=== PATIENT | male | born 1950 | race Caucasian/White ===

== ENCOUNTER → 2016-07-05 | Outpatient (CLI) | payer OTHER ==
[~2016-07-05] MED LIST: ALBUAER INH; CHONCAP PO; DOXA4TAB2 PO; MULT-506 PO; PANT40TA PO; SIMV20TA2 PO; ZNTT/150 PO
[2016-07-05 09:27] LABS: BASO % 0.6 %; BASO ABS # 0.03 K/uL (0-0.2); COMPLETE YES; EOS % 8.2 %; HEMATOCRIT 41.3 % (42-52); LYMPH % 36.4 %; LYMPH ABS # 1.72 K/uL (1.2-3.4); MEAN CELL VOLUME 95.2 fL (80-100); MEAN CORPUSCULAR HEMOGLOBIN 31.8 pg (25-34); MEAN CORPUSCULAR HGB CONC 33.4 g/dl (32-36); MEAN PLATELET VOLUME 10.1 fL (7.4-10.4); MONO % 13.3 %; NEUT % 41.5 %; PLATELET COUNT 226 K/uL (130-400); RED BLOOD COUNT 4.34 M/uL (4.7-6.1); WHITE BLOOD COUNT 4.73 K/uL (4.8-10.8)
[2016-07-05 09:39] LABS: ALT/SGPT 35 U/L (12-78); AST/SGOT 22 U/L (15-37); BLOOD UREA NITROGEN 23 mg/dl (7-18); BUN/CREATININE RATIO 23.1 (10-20); CALCIUM 8.6 mg/dl (8.5-10.1); CARBON DIOXIDE 29 mmol/L (21-32); CHLORIDE 108 mmol/L (98-107); GLUCOSE 99 mg/dl (70-99); POTASSIUM 4.1 mmol/L (3.5-5.1); SODIUM 144 mmol/L (136-145)
[2016-07-05 09:51] LABS: ALB/GLOB RATIO 1.1 (0.9-2); ALKALINE PHOSPHATASE 67 U/L (45-117); CHOLESTEROL 211 mg/dl (0-200); CHOLESTEROL/HDL RATIO 3.1; HDL CHOLESTEROL 67 mg/dl; LDL CHOLESTEROL CALCULATED 121 mg/dl; TRIGLYCERIDES 116 mg/dl (0-150); VERY LOW DENSITY LIPOPROT CALC 23 mg/dl
[2016-07-05 09:54] LABS: ESTIMATED AVERAGE GLUCOSE 117 mg/dl; HA1C FLAG Normal (Normal)
[2016-07-05 12:43] LABS: LYME DISEASE AB IGG NEG (NEG); LYME DISEASE AB IGM NEG (NEG)
== END | disposition home or self-care (01) ==
LOC: C.LAB 07:22
PROVIDERS: ATTEND Family Medicine
DX: R73.09 Other abnormal glucose (principal); E55.9 Vitamin D deficiency, unspecified; D51.9 Vitamin B12 deficiency anemia, unspecified

== ENCOUNTER 2022-09-03 21:40 | Inpatient (IN) ==
[2022-09-03] MEDS ORDERED: cefTRIAXone SODIUM 2,000 MG/70 ML BAG IV STA (22:06)
[2022-09-03] MEDS ORDERED: dexAMETHasone**PF** 10 MG/ML VIAL IV ONE (22:06)
--- NOTE | 2022-09-03 22:12 | Emergency Department Note ---
History of Present Illness General Chief complaint: Headache Stated complaint: SEVERE HEADACHES,NECK PAIN, Time Seen by Provider: 09/03/22 21:45 History of Present Illness Maximum Pain Intensity: 7 This 72-year-old male presents the ER complaining of severe headache, neck stiffness fever chills cold symptoms for the past few days and saw the PCP yesterday and was placed on cefdinir. Patient states he had a tick bite 10 days ago. He developed cold symptoms a week later. Patient states his neck feels quite stiff and his headache is quite severe. He has a history of migraines but this feels much different. Patient denies chest pain, dyspnea, numbness, tingling, localized weakness, abdominal pain. No blood thinners. Has been taking Motrin and Percocet for his symptoms without relief. Home Medications Medication Instructions Recorded Confirmed Type albuterol sulfate 90 mcg/actuation 2 puffs inhalation Q6H PRN SHORT 03/12/19 09/03/22 History aerosol inhaler (Proventil HFA) OF BREATH multivitamin 1 tab PO DAILY 03/12/19 09/03/22 History pantoprazole 40 mg tablet,delayed 40 mg PO HS 03/12/19 09/03/22 History release (Protonix) rizatriptan 10 mg tablet (Maxalt) 10 mg PO UD PRN Migraine Headache 03/23/19 09/03/22 History simvastatin 20 mg tablet (Zocor) 20 mg PO HS #90 tabs 02/26/22 09/03/22 Rx famotidine 20 mg tablet 20 mg PO DAILY 04/23/22 09/03/22 History fluticasone 250 mcg-salmeterol 50 1 inh inhalation BID #60 ea 05/01/22 09/03/22 Rx mcg/dose blistr powdr for inhalation (Advair Diskus) doxazosin 4 mg tablet (Cardura) 4 mg PO HS #90 tabs 07/11/22 09/03/22 Rx cefuroxime axetil 500 mg tablet 500 mg PO BID #30 tabs 09/02/22 09/03/22 Rx Allergies Allergy/AdvReac Type Severity Reaction Status Date / Time Sulfa (Sulfonamide Allergy Mild Rash Verified 09/02/22 16:37 Antibiotics) Past Med/Surg History Medical History Asthma stable BPH (benign prostatic hyperplasia) Bulging disc lumbar region Elevated PSA Encounter for pre-operative examination GERD (gastroesophageal reflux disease) controlled Migraine Surgical History H/O colonoscopy 2004 with bowel perf per pt H/O inguinal hernia repair RIGHT X3 History of colon surgery S/P PERFORATION DURING COLONOSCOPY History of colonoscopy History of endoscopic sinus surgery History of esophagogastroduodenoscopy (EGD) History of hernia surgery Femoral 2007 Hx of cholecystectomy Hx of hand surgery LEFT Hx of inguinal hernia surgery (03/31/19) Open Left Inguinal Hernia Repair with mesh Dr. Peace 03/31/19 [place] teeth removed Family History Father Prostate cancer Heart disease Lung cancer Grandfather No problems noted. 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 Feels Safe at Home: Yes Assistive Devices: Glasses Review of Systems A total of 10 systems reviewed and were otherwise negative Physical Exam Vital Signs Vital Signs - 24 hr 09/03/22 21:42 09/03/22 22:17 09/03/22 22:20 Temperature 36.5 C Temperature Source Temporal Artery Scan Pulse Rate 73 Pulse Rate [Finger] 75 Pulse Rate from SpO2 Sensor Pulse Rhythm Regular Pulse Rhythm [Finger] Regular Pulse Strength [Finger] Normal Respiratory Rate 20 18 18 Respiratory Effort / Characteristics Non-Labored Spontaneous Non-Labored Respiratory Depth Normal Normal Respiratory Pattern Regular Blood Pressure 165/94 H Blood Pressure [Left Arm] 133/80 Blood Pressure Mean 117 Blood Pressure Mean [Left Arm] 97 Pulse Oximetry 95 96 98 Oxygen Delivery Method Room Air Room Air Room Air Sepsis New/Unexplained Change in Mental Status N/A Sepsis Action Taken by Nursing No Action Required 09/03/22 22:47 09/03/22 23:00 09/03/22 23:00 Temperature Temperature Source Pulse Rate 76 71 Pulse Rate [Finger] Pulse Rate from SpO2 Sensor 75 70 Pulse Rhythm Pulse Rhythm [Finger] Pulse Strength [Finger] Respiratory Rate 18 15 Respiratory Effort / Characteristics Respiratory Depth Respiratory Pattern Blood Pressure 130/83 Blood Pressure [Left Arm] Blood Pressure Mean 98 Blood Pressure Mean [Left Arm] Pulse Oximetry 97 98 Oxygen Delivery Method Sepsis New/Unexplained Change in Mental Status Sepsis Action Taken by Nursing 09/03/22 23:15 Temperature Temperature Source Pulse Rate 68 Pulse Rate [Finger] Pulse Rate from SpO2 Sensor 67 Pulse Rhythm Pulse Rhythm [Finger] Pulse Strength [Finger] Respiratory Rate 18 Respiratory Effort / Characteristics Respiratory Depth Respiratory Pattern Blood Pressure Blood Pressure [Left Arm] Blood Pressure Mean Blood Pressure Mean [Left Arm] Pulse Oximetry 99 Oxygen Delivery Method Sepsis New/Unexplained Change in Mental Status Sepsis Action Taken by Nursing VITALS: Vitals are noted on the nurse's note and reviewed by myself. Vital signs stable. GENERAL: Pleasant gentleman who appears in pain, in no acute distress, nondiaphoretic, well-developed well-nourished. SKIN: The skin was without rashes, erythema, edema, or bruising. There is no tenting of the skin. Capillary reflex less than 2 seconds. HEAD: Normocephalic atraumatic. EARS: External auditory canals clear, tympanic membranes pearly steel without erythema or effusion bilaterally. EYES: Pupils equal round and reactive to light and accommodation. Conjunctivae without injection, sclerae without icterus. Extraocular movements intact. NOSE: Patent, turbinates without inflammation or discharge. No sinus tenderness. MOUTH: Mucous membranes moist. Pharynx without erythema or exudate. Uvula midline. Airway patent. Tongue does not deviate. NECK: Supple, pain with chin to chest. No lymphadenopathy. No thyromegaly. Cervical spine is nontender. No JVD. HEART: Regular rate and rhythm LUNGS: Clear to auscultation bilaterally without wheezes, rales or rhonchi. No retractions or accessory muscle use. ABDOMEN: Positive bowel sounds x 4. Normal tympanic percussion. Soft, nontender, without masses or organomegaly. Howell sign negative. No guarding or rebound tenderness. No CVA tenderness MUSCULOSKELETAL: No muscle atrophy, erythema, or edema noted. NEURO: Patient was alert and oriented to person place and time. Normal sensation to light and sharp touch. No tenderness over the occipital outflow tract. No focal neurological deficits. Course Administered Medications Vancomycin HCl 1,500 mg/ (Sodium Chloride) 530 mls @ 200 mls/hr IV NOW ONE Stop: 09/04/22 02:08 Last Admin: 09/04/22 00:34 Dose: 200 mls/hr Documented By: GRAZYNA Discontinued Medications Dexamethasone Sodium Phosphate (DexamethasonePf 10 Mg/Ml Vial) 10 mg IV NOW ONE Stop: 09/03/22 22:07 Last Admin: 09/03/22 22:48 Dose: 10 mg Documented By: GRAZYNA Ceftriaxone Sodium (Rocephin) 2,000 mg in 70 mls @ 140 mls/hr IV NOW STA Stop: 09/03/22 22:35 Last Infusion: 09/04/22 00:03 Dose: 0 mls/hr Documented By: Admin: 09/03/22 22:48 Dose: 140 mls/hr Documented By: GRAZYNA Sodium Chloride (Nss 1000ml) 1,000 mls @ 999 mls/hr IV .Q1H1M BERNIE Stop: 09/03/22 23:15 Last Infusion: 09/04/22 00:03 Dose: 0 mls/hr Documented By: Admin: 09/03/22 22:50 Dose: 999 mls/hr Documented By: GRAZYNA Acetaminophen (Ofirmev) 1,000 mg in 100 mls @ 400 mls/hr IV NOW STA Stop: 09/03/22 23:15 Last Infusion: 09/04/22 00:03 Dose: 0 mls/hr Documented By: Admin: 09/03/22 23:25 Dose: 400 mls/hr Documented By: GRAZYNA Metoclopramide HCl (Metoclopramide Hcl Inj 5 Mg/Ml 2 Ml Vial) 10 mg IV NOW STA Stop: 09/03/22 23:25 Last Admin: 09/03/22 23:50 Dose: 10 mg Documented By: GRAZYNA Medical Decision Making Medical Records Attestation: I reviewed the patient's medical records. Home Medications Current Medication List: was personally reviewed by me Laboratory Data Attestation: I reviewed the patient's lab results. 09/03/22 22:07 09/03/22 22:07 Lab Results 09/03/22 09/03/22 09/03/22 Range/Units 22:07 22:07 22:07 WBC 1.79 L (4.8-10.8) K/ul RBC 4.08 L (4.70-6.10) M/uL Hgb 13.0 L (14.0-18.0) g/dl Hct 37.5 L (42.0-52.0) % MCV 91.9 (80.0-100.0) fL MCH 31.9 (25.0-34.0) pg MCHC 34.7 (32.0-36.0) g/dL RDW Std Deviation 43.4 (36.4-46.3) fL RDW Coeff of Nilsa 12.9 (11.5-14.5) % Plt Count 78 L (130-400) K/uL MPV 11.3 (9.4-12.4) fL Immature Gran % (Auto) 0.0 % Neut % (Auto) 56.9 % Lymph % (Auto) 31.8 % [place] % (Auto) 10.1 % Eos % (Auto) 0.6 % Baso % (Auto) 0.6 % Neut # (Auto) 1.02 L (1.40-6.50) K/uL Lymph # (Auto) 0.57 L (1.2-3.4) K/uL [place] # (Auto) 0.18 (0.11-0.59) K/uL Eos # (Auto) 0.01 (0-0.50) K/uL Baso # (Auto) 0.01 (0-0.2) K/uL Immature Gran # (Auto) 0.00 L (0.01-0.20) K/uL Tear Drop Cells 1+ Echinocytes 1+ ESR 21 H (0-20) mm/hr Sodium (136-145) mmol/L Potassium (3.5-5.1) mmol/L Chloride (98-107) mmol/L Carbon Dioxide (21-32) mmol/L Anion Gap (3-11) BUN (6-23) mg/dl Creatinine (0.6-1.4) mg/dl Est Cr Clr Drug Dosing ml/min Est GFR ( Amer) ml/min Est GFR (Non-Af Amer) ml/min BUN/Creatinine Ratio (10-20) Glucose (70-99(Fasting)) mg/dl Lactate (0.4-2.0) mmol/L Calcium (8.6-10.3) mg/dl Magnesium (1.7-2.4) mg/dl Total Bilirubin (0.2-1.0) mg/dl Direct Bilirubin AST (13-39) U/L ALT (7-52) U/L Alkaline Phosphatase (34-104) U/L Troponin I High Sens (0-20) pg/ml C-Reactive Protein (0-0.5) mg/dl Total Protein (6.0-8.3) gm/dl Albumin (3.4-5.0) gm/dl Procalcitonin 0.29 (0-0.5) ng/ml Adenovirus (PCR) (NotDetected) Anaplasma Smear See Comment Babesia Smear See Comment B. pertussis DNA (PCR) (NotDetected) B.parapertussis DNA PCR (NotDetected) Lyme Disease IgG Ab Negative (Negative) Lyme Disease IgM Ab Negative (Negative) C. pneumoniae DNA (PCR) (NotDetected) Coronavirus OC43 (PCR) (NotDetected) Coronavirus HKU1 (PCR) (NotDetected) Coronavirus 229E (PCR) (NotDetected) SARS-CoV-2 (PCR) (NotDetected) Coronavirus NL63 (PCR) (NotDetected) Human Metapneumovir PCR (NotDetected) Influenza Type A (PCR) (NotDetected) Influenza Type B (PCR) (NotDetected) M. pneumoniae (PCR) (NotDetected) Parainfluenza 1 (PCR) (NotDetected) Parainfluenza 2 (PCR) (NotDetected) Parainfluenza 3 (PCR) (NotDetected) Parainfluenza 4 (PCR) (NotDetected) RSV (PCR) (NotDetected) Entero/Rhino (PCR) (NotDetected) 09/03/22 09/03/22 09/03/22 Range/Units 22:07 22:07 22:07 WBC (4.8-10.8) K/ul RBC (4.70-6.10) M/uL Hgb (14.0-18.0) g/dl Hct (42.0-52.0) % MCV (80.0-100.0) fL MCH (25.0-34.0) pg MCHC (32.0-36.0) g/dL RDW Std Deviation (36.4-46.3) fL RDW Coeff of Nilsa (11.5-14.5) % Plt Count (130-400) K/uL MPV (9.4-12.4) fL Immature Gran % (Auto) % Neut % (Auto) % Lymph % (Auto) % [place] % (Auto) % Eos % (Auto) % Baso % (Auto) % Neut # (Auto) (1.40-6.50) K/uL Lymph # (Auto) (1.2-3.4) K/uL [place] # (Auto) (0.11-0.59) K/uL Eos # (Auto) (0-0.50) K/uL Baso # (Auto) (0-0.2) K/uL Immature Gran # (Auto) (0.01-0.20) K/uL Tear Drop Cells Echinocytes ESR (0-20) mm/hr Sodium 137 (136-145) mmol/L Potassium 4.0 (3.5-5.1) mmol/L Chloride 106 (98-107) mmol/L Carbon Dioxide 25 (21-32) mmol/L Anion Gap 6 (3-11) BUN 14 (6-23) mg/dl Creatinine 0.86 (0.6-1.4) mg/dl Est Cr Clr Drug Dosing 82.5 ml/min Est GFR ( Amer) 101.8 ml/min Est GFR (Non-Af Amer) 87.9 ml/min BUN/Creatinine Ratio 16.3 (10-20) Glucose 128 H (70-99(Fasting)) mg/dl Lactate 0.8 (0.4-2.0) mmol/L Calcium 8.3 L (8.6-10.3) mg/dl Magnesium 1.9 (1.7-2.4) mg/dl Total Bilirubin 0.6 (0.2-1.0) mg/dl Direct Bilirubin TNP AST 88 H (13-39) U/L ALT 73 H (7-52) U/L Alkaline Phosphatase 92 (34-104) U/L Troponin I High Sens 12.1 (0-20) pg/ml C-Reactive Protein 10.76 H (0-0.5) mg/dl Total Protein 6.4 (6.0-8.3) gm/dl Albumin 3.6 (3.4-5.0) gm/dl Procalcitonin Cancelled (0-0.5) ng/ml Adenovirus (PCR) (NotDetected) Anaplasma Smear Babesia Smear B. pertussis DNA (PCR) (NotDetected) B.parapertussis DNA PCR (NotDetected) Lyme Disease IgG Ab (Negative) Lyme Disease IgM Ab (Negative) C. pneumoniae DNA (PCR) (NotDetected) Coronavirus OC43 (PCR) (NotDetected) Coronavirus HKU1 (PCR) (NotDetected) Coronavirus 229E (PCR) (NotDetected) SARS-CoV-2 (PCR) (NotDetected) Coronavirus NL63 (PCR) (NotDetected) Human Metapneumovir PCR (NotDetected) Influenza Type A (PCR) (NotDetected) Influenza Type B (PCR) (NotDetected) M. pneumoniae (PCR) (NotDetected) Parainfluenza 1 (PCR) (NotDetected) Parainfluenza 2 (PCR) (NotDetected) Parainfluenza 3 (PCR) (NotDetected) Parainfluenza 4 (PCR) (NotDetected) RSV (PCR) (NotDetected) Entero/Rhino (PCR) (NotDetected) 09/03/22 Range/Units 23:15 WBC (4.8-10.8) K/ul RBC (4.70-6.10) M/uL Hgb (14.0-18.0) g/dl Hct (42.0-52.0) % MCV (80.0-100.0) fL MCH (25.0-34.0) pg MCHC (32.0-36.0) g/dL RDW Std Deviation (36.4-46.3) fL RDW Coeff of Nilsa (11.5-14.5) % Plt Count (130-400) K/uL MPV (9.4-12.4) fL Immature Gran % (Auto) % Neut % (Auto) % Lymph % (Auto) % [place] % (Auto) % Eos % (Auto) % Baso % (Auto) % Neut # (Auto) (1.40-6.50) K/uL Lymph # (Auto) (1.2-3.4) K/uL [place] # (Auto) (0.11-0.59) K/uL Eos # (Auto) (0-0.50) K/uL Baso # (Auto) (0-0.2) K/uL Immature Gran # (Auto) (0.01-0.20) K/uL Tear Drop Cells Echinocytes ESR (0-20) mm/hr Sodium (136-145) mmol/L Potassium (3.5-5.1) mmol/L Chloride (98-107) mmol/L Carbon Dioxide (21-32) mmol/L Anion Gap (3-11) BUN (6-23) mg/dl Creatinine (0.6-1.4) mg/dl Est Cr Clr Drug Dosing ml/min Est GFR ( Amer) ml/min Est GFR (Non-Af Amer) ml/min BUN/Creatinine Ratio (10-20) Glucose (70-99(Fasting)) mg/dl Lactate (0.4-2.0) mmol/L Calcium (8.6-10.3) mg/dl Magnesium (1.7-2.4) mg/dl Total Bilirubin (0.2-1.0) mg/dl Direct Bilirubin AST (13-39) U/L ALT (7-52) U/L Alkaline Phosphatase (34-104) U/L Troponin I High Sens (0-20) pg/ml C-Reactive Protein (0-0.5) mg/dl Total Protein (6.0-8.3) gm/dl Albumin (3.4-5.0) gm/dl Procalcitonin (0-0.5) ng/ml Adenovirus (PCR) Not Detected (NotDetected) Anaplasma Smear Babesia Smear B. pertussis DNA (PCR) Not Detected (NotDetected) B.parapertussis DNA PCR Not Detected (NotDetected) Lyme Disease IgG Ab (Negative) Lyme Disease IgM Ab (Negative) C. pneumoniae DNA (PCR) Not Detected (NotDetected) Coronavirus OC43 (PCR) Not Detected (NotDetected) Coronavirus HKU1 (PCR) Not Detected (NotDetected) Coronavirus 229E (PCR) Not Detected (NotDetected) SARS-CoV-2 (PCR) Not Detected (NotDetected) Coronavirus NL63 (PCR) Not Detected (NotDetected) Human Metapneumovir PCR Not Detected (NotDetected) Influenza Type A (PCR) Not Detected (NotDetected) Influenza Type B (PCR) Not Detected (NotDetected) M. pneumoniae (PCR) Not Detected (NotDetected) Parainfluenza 1 (PCR) Not Detected (NotDetected) Parainfluenza 2 (PCR) Not Detected (NotDetected) Parainfluenza 3 (PCR) Not Detected (NotDetected) Parainfluenza 4 (PCR) Not Detected (NotDetected) RSV (PCR) Not Detected (NotDetected) Entero/Rhino (PCR) Not Detected (NotDetected) Imaging Data Attestation: I personally reviewed and interpreted this imaging study as follows: Radiologist's Impression: Head CT 09/03/22 22:06 Exam(s): CT HEAD Without Contrast EXAM: CT Head Without Intravenous Contrast CLINICAL HISTORY: Reason for exam: [place]/fever. TECHNIQUE: Axial computed tomography images of the head/brain without intravenous contrast. Automated exposure control was utilized for the study. A dose lowering technique was utilized adhering to the principles of ALARA. COMPARISON: No relevant prior studies available. FINDINGS: Brain: No hemorrhage, extra-axial fluid collection, mass effect, or edema. Ventricles: Unremarkable. Bones/joints: Unremarkable. No fracture. Soft tissues: Unremarkable. Sinuses: Mild scattered paranasal sinus mucosal thickening. No sinusitis. Mastoid air cells: Unremarkable as visualized. IMPRESSION: 1. No acute intracranial abnormality. Electronically signed by: Orlin Noriega MD 09/03/22 23:05 PM Chest X-Ray 09/03/22 22:07 SINGLE VIEW CHEST CLINICAL HISTORY: Sepsis. FINDINGS: An AP, portable, upright chest radiograph is compared to study dated 03/24/2019. The heart is enlarged noting atherosclerotic calcification of the thoracic aorta. The pulmonary vasculature is noncongested. There are scattered calcified granulomas. Mild atelectasis is seen at the lung bases. The lungs and pleural spaces are otherwise clear. No pneumothorax is seen. The skeletal structures are osteopenic. Bony thorax is grossly intact. IMPRESSION: Cardiac enlargement with no active disease in the chest. ACT 112: Negative or not required by law. Electronically signed by: Alexei Marvin M.D. 09/03/2022 10:48 PM MDM Narrative Prior records/ancillary studies reviewed. Triage Nursing notes reviewed. Additional history obtained from family. The patient's history was concerning for headache and fever. Differential diagnosis: Etiologies such as Lyme's, tickborne illness, viral syndrome, otitis, pharyngitis, pneumonia, influenza, meningitis, urinary tract infection, sepsis, bacteremia, as well as others were entertained. Physical examination: As above ER treatment provided: An order was placed for continuous cardiac monitoring. The monitor shows a rate of 60-100 with a sinus rhythm per my interpretation. IV fluids Rocephin Decadron, vancomycin was given for possible meningitis Tylenol Reglan was given for headache On reassessment the patient felt better. Diagnostics interpreted by me: ECG: Ordered for weakness EKG: Normal sinus, normal intervals, no acute ST-T wave changes. Impression normal sinus rhythm independently turbid by myself I think arrhythmia is unlikely. EKG shows normal sinus rhythm with no interval abnormalities such as QT prolongation or WPW. There are no findings to suggest Brugada syndrome. Cardiac monitoring in the emergency department reveals no tachycardic or bradycardic dysrhythmia. Hypertrophic cardiomyopathy was co nsidered but there are no clear historical elements pointing toward this. EKG is not suggestive. The QRS voltage is not extremely large and there are no suggestive Q waves. The labs Independently Interpreted by myself revealed pancytopenia, mildly elevated LFTs Blood cultures pending Negative lactic Imaging studies: Chest x-ray with no acute consolidation, pneumothorax or free air per my inde pendent interpretation Head CT was negative for intracranial bleed per my independent interpretation Negative [employer] Consultation: A consultation was placed with medicine. The case was discussed and diagnostics were reviewed. The patient was evaluated in the ER for further treatment. This appears to be consistent with headache and fever with concerns for possible meningitis. Patient's platelet counts are low. Because of this I did opt not to do an LP. Patient was given Rocephin and vancomycin as above. Medicine is consulted and the case was discussed. Patient be admitted to the medical service. No pneumonia on x-ray. Lactic and procalcitonin are negative. Lyme's is negative. By the evaluation outlined above emergent etiologies such as otitis, pharyngitis, pneumonia, sepsis, bacteremia, as well as others were deemed relatively unlikely. The pt informed about the findings as listed above. All questions were answered and pleased with the treatment. The chart was completed utilizing [employer] Speech voice recognition software. Grammatical errors, random word insertions, pronoun errors, and incomplete sentences are an occassional consequence of this system due to software limitations, ambient noise, and hardware issues. Any formal questions or concerns about the content, text, or information contained within the body of this dictation should be directly addressed to the physician environmental services assistant for clarification. Impression & Plan Headache, Fever, Pancytopenia Discharge Plan Visit Data Chief Complaint: Headache Stated Complaint: SEVERE HEADACHES,NECK PAIN, ED Provider: Court Hernandez ED Midlevel Provider: Maria Fernanda Lutz Discharge Problem: Headache, Fever, Pancytopenia Patient Disposition: Admitted As Inpatient Condition: Fair Forms Stand Alone Forms: [facility] [employer] Prescriptions Prescriptions: No Action simvastatin [Zocor] 20 mg tablet 20 mg PO HS Qty: 90 3RF cefuroxime axetil 500 mg tablet 500 mg PO BID Qty: 30 1RF albuterol sulfate [Proventil HFA] 90 mcg/actuation HFA aerosol inhaler 2 puffs INH Q6H PRN (Reason: SHORT OF BREATH) Patient Comments: several days ago multivitamin tablet 1 tab PO DAILY pantoprazole [Protonix] 40 mg tablet,delayed release (DR/EC) 40 mg PO HS doxazosin [Cardura] 4 mg tablet 4 mg PO HS Qty: 90 3RF famotidine 20 mg tablet 20 mg PO DAILY fluticasone propion-salmeterol [Advair Diskus] 250-50 mcg/dose blister with device 1 inh inhalation BID Qty: 60 11RF rizatriptan [Maxalt] 10 mg Tablet 10 mg PO UD PRN (Reason: Migraine Headache) Referrals Referrals: Ross Del Castillo MD [Primary Care Provider] - Headache Qualifiers: Headache type: unspecified Headache chronicity pattern: acute headache Intractability: not intractable Qualified Code(s): R51.9 - Headache, unspecified
[2022-09-03] MEDS ORDERED: SODIUM CHLORIDE 0.9% 1000ML 1,000 ML IV SCH (22:15)
[2022-09-03 22:43] LABS: Hematocrit (blood only) 37.5 % (42.0-52.0); Mean Corpuscular Hemoglobin 31.9 pg (25.0-34.0); Mean Corpuscular Hgb Conc 34.7 g/dL (32.0-36.0); Mean Corpuscular Volume 91.9 fL (80.0-100.0); RDW Coefficient of Variation 12.9 % (11.5-14.5); RDW Standard Deviation 43.4 fL (36.4-46.3); Red Blood Count 4.08 M/uL (4.70-6.10); White Blood Count 1.79 K/ul (4.8-10.8)
[2022-09-03 22:49] LABS: Basophils # (auto) 0.01 K/uL (0-0.2); Basophils % (auto) 0.6 %; Echinocytes 1+; Eosinophils # (auto) 0.01 K/uL (0-0.50); Eosinophils % (auto) 0.6 %; Lymphocytes # (auto) 0.57 K/uL (1.2-3.4); Lymphocytes % (auto) 31.8 %; Mean Platelet Volume 11.3 fL (9.4-12.4); Monocytes # (auto) 0.18 K/uL (0.11-0.59); Monocytes % (auto) 10.1 %; Neutrophils # (auto) 1.02 K/uL (1.40-6.50); Neutrophils % (auto) 56.9 %; Platelet Count 78 K/uL (130-400); Tear Drop Cells 1+
--- NOTE | 2022-09-03 22:49 | XRay Report ---
SINGLE VIEW CHEST CLINICAL HISTORY: Sepsis. FINDINGS: An AP, portable, upright chest radiograph is compared to study dated 03/24/2019. The heart i s enlarged noting atherosclerotic calcification of the thoracic aorta. The pulmonary vasculature is n oncongested. There are scattered calcified granulomas. Mild atelectasis is seen at the lung bases. Th e lungs and pleural spaces are otherwise clear. No pneumothorax is seen. The skeletal structures are osteopenic. Bony thorax is grossly intact. IMPRESSION: Cardiac enlargement with no active disease in the chest. ACT 112: Negative or not required by law. Electronically signed by: Alexei Marvin M.D. 09/03/2022 10:48 PM
[2022-09-03 22:59] LABS: Alanine Aminotransferase 73 U/L (7-52); Albumin Level 3.6 gm/dl (3.4-5.0); Alkaline Phosphatase 92 U/L (34-104); Anion Gap 6 (3-11); Aspartate Aminotransferase 88 U/L (13-39); BUN Creatinine Ratio 16.3 (10-20); Bilirubin,Total 0.6 mg/dl (0.2-1.0); Blood Urea Nitrogen 14 mg/dl (6-23); C Reactive Protein 10.76 mg/dl (0-0.5); Calcium 8.3 mg/dl (8.6-10.3); Carbon Dioxide 25 mmol/L (21-32); Chloride 106 mmol/L (98-107); Creatinine Clr Calc Pharmacy 82.5 ml/min; Est GFR (African American) 101.8 ml/min; Est GFR (Non-African American) 87.9 ml/min; Glucose 128 mg/dl (70-99(Fasting)); Magnesium 1.9 mg/dl (1.7-2.4); Sodium 137 mmol/L (136-145); Total Protein 6.4 gm/dl (6.0-8.3); Troponin I High Sensitivity 12.1 pg/ml (0-20)
[2022-09-03] MEDS ORDERED: ACETAMINOPHEN 1,000 MG/100 ML VIAL IV STA (23:01)
[2022-09-03 23:02] LABS: Procalcitonin 0.29 ng/ml (0-0.5)
--- NOTE | 2022-09-03 23:06 | CT Scan Report ---
Exam(s): CT HEAD Without Contrast EXAM: CT Head Without Intravenous Contrast CLINICAL HISTORY: Reason for exam: [place]/fever. TECHNIQUE: Axial computed tomography images of the head/brain without intravenous contrast. Automated exposure control was utilized for the study. A dose lowering technique was utilized adhering to the principles of ALARA. COMPARISON: No relevant prior studies available. FINDINGS: Brain: No hemorrhage, extra-axial fluid collection, mass effect, or edema. Ventricles: Unremarkable. Bones/joints: Unremarkable. No fracture. Soft tissues: Unremarkable. Sinuses: Mild scattered paranasal sinus mucosal thickening. No sinusitis. Mastoid air cells: Unremarkable as visualized. IMPRESSION: 1. No acute intracranial abnormality. Electronically signed by: Orlin Noriega MD 09/03/22 23:05 PM
[2022-09-03 23:08] LABS: Lyme Ab IgG w/WB Rflx Negative (Negative); Lyme Ab IgM w/WB Rflx Negative (Negative)
[2022-09-03] MEDS ORDERED: METOCLOPRAMIDE HCL INJ 5 MG/ML 2 ML VIAL IV STA (23:24)
[2022-09-03] MEDS ORDERED: VANCOMYCIN HCL 1,500 MG in SODIUM CHLORIDE 0.9% 500 ML IV ONE (23:30)
[2022-09-03] MEDS ORDERED: VANCOMYCIN CONSULT ACTIVE PRN (23:30)
--- NOTE | 2022-09-04 00:04 | History & Physical Report ---
Date of Service September 04, 2022 Assessment & Plan (1) Headache: Plan: 72yo male with history of well controlled asthma, GERD, HLP presenting with severe COVINGTON with photophobia and reported neck stiffness as well as fever and myalgias ongoing for the last 6-7 days. Patient is afebrile, HD stable and non- toxic in appearance. No significant nuchal rigidity appreciated on my exam. Labs as above are significant for lorenzo-cytopenia and mild elevation of LFTs. In setting of recent tick bite most strongly suspect tick-borne illness such as Anaplasmosis as cause of patient's current symptoms. Laboratory findings could be consistent with a tick-borne illness. Anaplasmosis and Babesiosis smears are negative and DNA have been sent. Less suspicious for meningitis, however, remains on the differential. No LP performed due to low platelets of 78. Patient's recent Covid-19 booster could also be contributing to his laboratory abnormalities. -Will admit to medical -Check MRI Brain and MRV given severity of COVINGTON -Continue empiric antibiotic coverage for meningitis to include - Ceftriaxone 2gm IV BID, Vancomycin, Acyclovir 800mg IV q 8 hours and Ampicillin given age of 72 -Await Anaplasmosis DNA study -Doxycycline 100mg IV q 8 (2) Pancytopenia: Plan: Patient with pancytopenia. Leukopenia with WBC=1.79 with decreased Neutrophils and Lymphocytes. Normochromic/normocytic anemia with Hgb=13, Hct=37.5 and thrombocytopenia with Plt=78. Possibly secondary to acute illness -tick-borne vs viral No active bleeding Patient did have bicytopenia on previous labs form 05/2021 with anemia and leukopenia. Prior values from 06/06/21 with WBC=4.77, Hgb=13.7 and Hct=42.2 and Platelets of 248. -Continue to monitor, repeat CBC in AM -No indication for transfusion (3) Asthma: Plan: Stable. Well controlled. Currently without cough, SOB or wheeze. Adequate oxygenation on room air -Continue Advair BID and Albuterol PRN (4) Hypercholesterolemia: Plan: Chronic. Stable -Continue Simvastatin 20mg po qHS (5) GERD (gastroesophageal reflux disease): Plan: Chronic. Stable -Continue Protonix 40mg po qHS F/E/N - Heplock. Electrolytes WNL. Regular diet as tolerated Ppx - Low risk for DVT Code - Full Dispo - Admit to medical History of Present Illness Chief Complaint: Severe headache Primary Care Provider: Ross Del Castillo MD Raymundo Bullock is a pleasant 72yo male with history of well controlled asthma, BPH, GERD and HLP presenting with severe COVINGTON with neck stiffness, photophobia, myalgias. Patient developed URI symptoms last week with neck stiffness on 08/29/22. The symptoms persisted over the next several days. On 08/31/22 he felt more fatigued with body aches and fever. Fever persisted through 09/01 with Tmax of 102.5. He was seen by his PCP on 09/02 and was given a prescription for Cefuroxime which he has been taking without difficulty. Patient's symptoms worsened today which prompted him to come to the ER. He has been taking Ibuprofen for management of his headache with minimal improvement. Patient's headache is severe, stabbing pain at the top of his head and slightly more left sided. Patient also endorses some mild photophobia and nausea. He has a history of migraine but has not had a migraine recently. He reports that his current COVINGTON does not feel anything like his prior migraine. Additionally- patient did have a tick bite approximately 10 days ago. The tick bit him on his left calf. He thinks it was attached only a few hours as it was not engorged. He removed it without difficulty. No rash noted. Patient also recently had his Covid-19 bivalent booster. He had mild symptoms with his previous boosters but nothing severe as this. In the ER he is afebrile, HD stable. ER Course: Ceftriaxone 2gm Dexamethasone 10mg IV NSS x 1L Tylenol 1gm Reglan 10mg IV Vancomycin 1500mg Allergies Allergy/AdvReac Type Severity Reaction Status Date / Time Sulfa (Sulfonamide Allergy Mild Rash Verified 09/02/22 16:37 Antibiotics) Home Medications Medication Instructions Recorded Confirmed Type albuterol sulfate 90 mcg/actuation 2 puffs inhalation Q6H PRN SHORT 03/12/19 09/03/22 History aerosol inhaler (Proventil HFA) OF BREATH multivitamin 1 tab PO DAILY 03/12/19 09/03/22 History pantoprazole 40 mg tablet,delayed 40 mg PO HS 03/12/19 09/03/22 History release (Protonix) rizatriptan 10 mg tablet (Maxalt) 10 mg PO UD PRN Migraine Headache 03/23/19 09/03/22 History simvastatin 20 mg tablet (Zocor) 20 mg PO HS #90 tabs 02/26/22 09/03/22 Rx famotidine 20 mg tablet 20 mg PO DAILY 04/23/22 09/03/22 History fluticasone 250 mcg-salmeterol 50 1 inh inhalation BID #60 ea 05/01/22 09/03/22 Rx mcg/dose blistr powdr for inhalation (Advair Diskus) doxazosin 4 mg tablet (Cardura) 4 mg PO HS #90 tabs 07/11/22 09/03/22 Rx cefuroxime axetil 500 mg tablet 500 mg PO BID #30 tabs 09/02/22 09/03/22 Rx Past Med/Surg History Medical History Asthma stable BPH (benign prostatic hyperplasia) Bulging disc lumbar region Elevated PSA Encounter for pre-operative examination GERD (gastroesophageal reflux disease) controlled Migraine Surgical History H/O colonoscopy 2004 with bowel perf per pt H/O inguinal hernia repair RIGHT X3 History of colon surgery S/P PERFORATION DURING COLONOSCOPY History of colonoscopy History of endoscopic sinus surgery History of esophagogastroduodenoscopy (EGD) History of hernia surgery Femoral 2006 Hx of cholecystectomy Hx of hand surgery LEFT Hx of inguinal hernia surgery (03/31/19) Open Left Inguinal Hernia Repair with mesh Dr. Peace 03/31/19 [place] teeth removed Family History Father Prostate cancer Heart disease Lung cancer Grandfather No problems noted. 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 Small scab located on left calf from tick bite - no rash or induration HEENT: NC/AT, PERRL with mild photophobia, EOMI, anicteric sclera, conjunctiva without injection, external ear normal to inspection and nontender, nares patent, moist mucus membranes, dentition intact, no oropharyngeal lesions, neck supple, trachea midline, no LAD, no thyromegaly, no JVD Heart: +S1/S2, regular, no m/r/g Lungs: equal air entry bilaterally, no rales/rhonchi/wheezes Abd: +BS, soft, NT/ND, no masses/organomegaly/ascites Ext: warm, 2+ pulses in UE/LE bilaterally, no clubbing/cyanosis or edema Neuro: nonfocal, patient AA&O x 4, speech intact, no facial droop, moving all extremities on command with equal strength 5/5, negative Kernig's sign and negative Brudzinski's sign Results & Data Results & Data Vital Signs (Past 12 Hours) Vital Signs Temp Pulse Pulse Resp BP BP Pulse Ox 09/03/22 23:15 68 18 99 09/03/22 23:00 71 15 98 09/03/22 23:00 130/83 09/03/22 22:47 76 18 97 09/03/22 22:20 75 18 133/80 98 09/03/22 22:17 73 18 96 09/03/22 21:42 36.5 C 20 165/94 H 95 O2 Del Method 09/03/22 23:15 09/03/22 23:00 09/03/22 23:00 09/03/22 22:47 09/03/22 22:20 Room Air 09/03/22 22:17 Room Air 09/03/22 21:42 Room Air Laboratory Results Laboratory Results WBC 1.79 K/ul (4.8-10.8) L 09/03/22 22:07 RBC 4.08 M/uL (4.70-6.10) L 09/03/22 22:07 Hgb 13.0 g/dl (14.0-18.0) L 09/03/22 22:07 Hct 37.5 % (42.0-52.0) L 09/03/22 22:07 MCV 91.9 fL (80.0-100.0) 09/03/22 22:07 MCH 31.9 pg (25.0-34.0) 09/03/22 22:07 MCHC 34.7 g/dL (32.0-36.0) 09/03/22 22:07 RDW Std Deviation 43.4 fL (36.4-46.3) 09/03/22 22:07 RDW Coeff of Nilsa 12.9 % (11.5-14.5) 09/03/22 22:07 Plt Count 78 K/uL (130-400) L 09/03/22 22:07 MPV 11.3 fL (9.4-12.4) 09/03/22 22:07 Immature Gran % (Auto) 0.0 % 09/03/22 22:07 Neut % (Auto) 56.9 % 09/03/22 22:07 Lymph % (Auto) 31.8 % 09/03/22 22:07 [place] % (Auto) 10.1 % 09/03/22 22:07 Eos % (Auto) 0.6 % 09/03/22 22:07 Baso % (Auto) 0.6 % 09/03/22 22:07 Neut # (Auto) 1.02 K/uL (1.40-6.50) L 09/03/22 22:07 Lymph # (Auto) 0.57 K/uL (1.2-3.4) L 09/03/22 22:07 [place] # (Auto) 0.18 K/uL (0.11-0.59) 09/03/22 22:07 Eos # (Auto) 0.01 K/uL (0-0.50) 09/03/22 22:07 Baso # (Auto) 0.01 K/uL (0-0.2) 09/03/22 22:07 Immature Gran # (Auto) 0.00 K/uL (0.01-0.20) L 09/03/22 22:07 Tear Drop Cells 1+ 05/16/23 22:07 Echinocytes 1+ 09/03/22 22:07 ESR 21 mm/hr (0-20) H 09/03/22 22:07 Sodium 137 mmol/L (136-145) 09/03/22 22:07 Potassium 4.0 mmol/L (3.5-5.1) 09/03/22 22:07 Chloride 106 mmol/L (98-107) 09/03/22 22:07 Carbon Dioxide 25 mmol/L (21-32) 09/03/22 22:07 Anion Gap 6 (3-11) 09/03/22 22:07 BUN 14 mg/dl (6-23) 09/03/22 22:07 Creatinine 0.86 mg/dl (0.6-1.4) 09/03/22 22:07 Est Cr Clr Drug Dosing 82.5 ml/min 09/03/22 22:07 Est GFR ( Amer) 101.8 ml/min 09/03/22 22:07 Est GFR (Non-Af Amer) 87.9 ml/min 09/03/22 22:07 BUN/Creatinine Ratio 16.3 (10-20) 09/03/22 22:07 Glucose 128 mg/dl (70-99(Fasting)) H 09/03/22 22:07 Lactate 0.8 mmol/L (0.4-2.0) 09/03/22 22:07 Calcium 8.3 mg/dl (8.6-10.3) L 09/03/22 22:07 Magnesium 1.9 mg/dl (1.7-2.4) 09/03/22 22:07 Total Bilirubin 0.6 mg/dl (0.2-1.0) 09/03/22 22:07 Direct Bilirubin 0.0 mg/dl (0-0.2) 09/03/22 23:37 AST 88 U/L (13-39) H 09/03/22 22:07 ALT 73 U/L (7-52) H 09/03/22 22:07 Alkaline Phosphatase 92 U/L (34-104) 09/03/22 22:07 Troponin I High Sens 12.1 pg/ml (0-20) 09/03/22 22:07 C-Reactive Protein 10.76 mg/dl (0-0.5) H 09/03/22 22:07 Total Protein 6.4 gm/dl (6.0-8.3) 09/03/22 22:07 Albumin 3.6 gm/dl (3.4-5.0) 09/03/22 22:07 Procalcitonin 0.29 ng/ml (0-0.5) 09/03/22 22:07 Procalcitonin Cancelled 09/03/22 22:07 Adenovirus (PCR) Not Detected (NotDetected) 09/03/22 23:15 Anaplasma Smear See Comment 09/03/22 22:07 Babesia Smear See Comment 09/03/22 22:07 B. pertussis DNA (PCR) Not Detected (NotDetected) 09/03/22 23:15 B.parapertussis DNA PCR Not Detected (NotDetected) 09/03/22 23:15 Lyme Disease IgG Ab Negative (Negative) 09/03/22 22:07 Lyme Disease IgM Ab Negative (Negative) 09/03/22 22:07 C. pneumoniae DNA (PCR) Not Detected (NotDetected) 09/03/22 23:15 Coronavirus OC43 (PCR) Not Detected (NotDetected) 09/03/22 23:15 Coronavirus HKU1 (PCR) Not Detected (NotDetected) 09/03/22 23:15 Coronavirus 229E (PCR) Not Detected (NotDetected) 09/03/22 23:15 SARS-CoV-2 (PCR) Not Detected (NotDetected) 09/03/22 23:15 Coronavirus NL63 (PCR) Not Detected (NotDetected) 09/03/22 23:15 Human Metapneumovir PCR Not Detected (NotDetected) 09/03/22 23:15 Influenza Type A (PCR) Not Detected (NotDetected) 09/03/22 23:15 Influenza Type B (PCR) Not Detected (NotDetected) 09/03/22 23:15 M. pneumoniae (PCR) Not Detected (NotDetected) 09/03/22 23:15 Parainfluenza 1 (PCR) Not Detected (NotDetected) 09/03/22 23:15 Parainfluenza 2 (PCR) Not Detected (NotDetected) 09/03/22 23:15 Parainfluenza 3 (PCR) Not Detected (NotDetected) 09/03/22 23:15 Parainfluenza 4 (PCR) Not Detected (NotDetected) 09/03/22 23:15 RSV (PCR) Not Detected (NotDetected) 09/03/22 23:15 Entero/Rhino (PCR) Not Detected (NotDetected) 09/03/22 23:[address] 09/03/22 22:06 Exam(s): CT HEAD Without Contrast EXAM: CT Head Without Intravenous Contrast CLINICAL HISTORY: Reason for exam: [place]/fever. TECHNIQUE: Axial computed tomography images of the head/brain without intravenous contrast. Automated exposure control was utilized for the study. A dose lowering technique was utilized adhering to the principles of ALARA. COMPARISON: No relevant prior studies available. FINDINGS: Brain: No hemorrhage, extra-axial fluid collection, mass effect, or edema. Ventricles: Unremarkable. Bones/joints: Unremarkable. No fracture. Soft tissues: Unremarkable. Sinuses: Mild scattered paranasal sinus mucosal thickening. No sinusitis. Mastoid air cells: Unremarkable as visualized. IMPRESSION: 1. No acute intracranial abnormality. Electronically signed by: Orlin Noriega MD 09/03/22 23:05 PM Chest X-Ray 09/03/22 22:07 SINGLE VIEW CHEST CLINICAL HISTORY: Sepsis. FINDINGS: An AP, portable, upright chest radiograph is compared to study dated 03/24/2019. The heart is enlarged noting atherosclerotic calcification of the thoracic aorta. The pulmonary vasculature is noncongested. There are scattered calcified granulomas. Mild atelectasis is seen at the lung bases. The lungs and pleural spaces are otherwise clear. No pneumothorax is seen. The skeletal structures are osteopenic. Bony thorax is grossly intact. IMPRESSION: Cardiac enlargement with no active disease in the chest. ACT 112: Negative or not required by law. Electronically signed by: Alexei Marvin M.D. 09/03/2022 10:48 PM PG Care Time/CCT Total # of Minutes Spent Total Time Spent with Patient: Total time spent is greater than 50% in coordination of care (as documented) at patient's floor/unit and/or counseling patient: Coding Level of Care Code 93690 INT INP/OBS CARE 3/75MIN Diagnoses Headache R51.9 Headache chronicity pattern: acute headache Headache type: unspecified Intractability: not intractable Pancytopenia D61.818 Asthma J45.909 Asthma severity: severe Asthma persistence: persistent Hypercholesterolemia E78.00 GERD (gastroesophageal reflux disease) K21.9 (1) Headache Headache chronicity pattern: acute headache Headache type: unspecified Intractability: not intractable Qualified Code(s): R51.9 - Headache, unspecified (3) Asthma Asthma severity: severe Asthma persistence: persistent
[2022-09-04 00:21] LABS: Adenovirus PCR Not Detected (NotDetected); Bordetella parapertussis PCR Not Detected (NotDetected); Bordetella pertussis PCR Not Detected (NotDetected); Chlamydia pneumoniae PCR Not Detected (NotDetected); Coronavirus 229E PCR Not Detected (NotDetected); Coronavirus CoV-2 (COVID19)PCR Not Detected (NotDetected); Coronavirus HKU1 PCR Not Detected (NotDetected); Coronavirus NL63 PCR Not Detected (NotDetected); Coronavirus OC43PCR Not Detected (NotDetected); Human Metapneumovirus PCR Not Detected (NotDetected); Influenza A PCR Not Detected (NotDetected); Influenza B PCR Not Detected (NotDetected); Mycoplasma pneumoniae PCR Not Detected (NotDetected); Parainfluenza Virus 1 PCR Not Detected (NotDetected); Parainfluenza Virus 2 PCR Not Detected (NotDetected); Parainfluenza Virus 3 PCR Not Detected (NotDetected); Parainfluenza Virus 4 PCR Not Detected (NotDetected); Respiratory Syncytial VirusPCR Not Detected (NotDetected); Rhinovirus/Enterovirus PCR Not Detected (NotDetected)
[2022-09-04] MEDS ORDERED: VANCOMYCIN CONSULT ACTIVE PRN (01:28)
[2022-09-04] MEDS ORDERED: DOCUSATE SODIUM 100 MG CAP PO PRN (01:28)
[2022-09-04] MEDS ORDERED: VANCOMYCIN HCL 1,000 MG in SODIUM CHLORIDE 0.9% 250 ML IV SCH (01:28)
[2022-09-04] MEDS ORDERED: ONDANSETRON INJ 2 MG/ML 2 ML VIAL IV PRN (01:28)
[2022-09-04] MEDS ORDERED: ALBUTEROL HFA 8 GM INHALER INH PRN (01:28)
[2022-09-04] MEDS ORDERED: VANCOMYCIN HCL 1,400 MG in SODIUM CHLORIDE 0.9% 500 ML IV ONE (02:00)
[2022-09-04] MEDS ORDERED: ACYCLOVIR SOD 800 MG in DEXTROSE 5% 250 ML IV ONE (02:30)
[2022-09-04] MEDS: AMPICILLIN 2,000 MG in SODIUM CHLOR 0.9% AD-VAN 100 ML IV SCH ×5 (05:26→21:23)
[2022-09-04] MEDS ORDERED: Nursing to Pharmacy Communication SCH (05:45)
[2022-09-04] MEDS: DOXYCYCLINE HYCLATE 100 MG CAP PO SCH ×2 (08:33→20:23)
[2022-09-04] MEDS: FAMOTIDINE 20 MG TAB PO SCH (08:33)
[2022-09-04] MEDS: FLUTICASONE/VILANTEROL 200/25MCG 14 PUFFS/INHALER INH SCH (08:33)
[2022-09-04] MEDS ORDERED: FLUTICASONE/SALMETEROL 250/50 (ADVAIR) 14 PUFF/1 INHALER INH SCH (09:00)
[2022-09-04 09:49] LABS: Albumin Level 3.8 gm/dl (3.4-5.0); Bilirubin,Total 0.5 mg/dl (0.2-1.0); Calcium 8.7 mg/dl (8.6-10.3); Potassium 4.4 mmol/L (3.5-5.1)
[2022-09-04 09:51] LABS: Hematocrit (blood only) 39.7 % (42.0-52.0); Hemoglobin 13.6 g/dl (14.0-18.0); Mean Corpuscular Hemoglobin 31.7 pg (25.0-34.0); Mean Corpuscular Hgb Conc 34.3 g/dL (32.0-36.0); Mean Corpuscular Volume 92.5 fL (80.0-100.0); Platelet Count 93 K/uL (130-400); RDW Coefficient of Variation 13.1 % (11.5-14.5); RDW Standard Deviation 44.8 fL (36.4-46.3); Red Blood Count 4.29 M/uL (4.70-6.10); White Blood Count 1.43 K/ul (4.8-10.8)
[2022-09-04 09:55] LABS: BUN Creatinine Ratio 11.4 (10-20); Creatinine Clr Calc Pharmacy 87.2 ml/min; Est GFR (African American) 105.4 ml/min; Total Protein 6.8 gm/dl (6.0-8.3)
[2022-09-04] MEDS ORDERED: GADOBUTROL 65ML VIAL IV ONE (09:59)
[2022-09-04] MEDS: ACETAMINOPHEN 325 MG TAB PO PRN ×2 (10:19→14:19)
--- NOTE | 2022-09-04 10:20 | Magnetic Resonance Report ---
MRI OF THE BRAIN COMBO CLINICAL HISTORY: Headache. Neck stiffness. COMPARISON STUDY: CT of the brain dated 09/03/2022. TECHNIQUE: MRI of the brain was performed utilizing various T1 and T2-weighted sequences in the axial , sagittal, and coronal planes. Contrast-enhanced sequences were acquired following the administratio n of 8 cc of Gadavist. FINDINGS: Brain parenchyma: There is age-related involutional change noting minimal microangiopathic disease. T here is no hemorrhage or mass effect. There is no restricted diffusion to suggest acute ischemia. No enhancing mass lesion is identified on the postcontrast images. Liu-white matter differentiation is preserved. No extra-axial fluid collection is seen. The cerebellar tonsils are normal in configuratio n. There is no leptomeningeal or pachymeningeal enhancement. Ventricles, sulci, and cisterns: Prominent secondary to involutional change. Pituitary and sella: Unremarkable. Intracranial vasculature: Normal flow voids are maintained at the skull base. Orbits: The bony orbits are grossly intact. Orbital contents are normal in appearance. Sinuses and mastoids: Retention cyst in the maxillary antra measuring up to 11 mm. Oopo-gr-pxosmlfs m ucosal thickening is noted within the ethmoid sinuses and the right frontal sinus. The mastoid air ce lls are clear. Calvarium: Unremarkable. Cervical cord: Partially visualized cervical spinal cord is normal in morphology and signal intensity . IMPRESSION: No acute intracranial abnormality. ACT 112: Negative or not required by law. Electronically signed by: Alexei Marvin M.D. 09/04/2022 10:18 AM
--- NOTE | 2022-09-04 10:25 | Electrocardiogram Report ---
Test Reason : Blood Pressure : / mmHG Vent. Rate : 070 BPM Atrial Rate : 070 BPM P-R Int : 184 ms QRS Dur : 100 ms QT Int : 384 ms P-R-T Axes : 046 051 042 degrees QTc Int : 414 ms Normal sinus rhythm Normal ECG When compared with ECG of 24-MAR-2019 09:09, No significant change was found Confirmed by Jonas Holland ([id number]) on 09/04/2022 10:24:57 AM Referred By: REFERRED SELF Confirmed By:Luís Holland
--- NOTE | 2022-09-04 10:32 | Magnetic Resonance Report ---
MR venography head wo con HISTORY: 72 years-old Male severe COVINGTON acute severe headache COMPARISON: Brain MRI of same day, head CT 09/03/2022 TECHNIQUE: MRV was obtained without the use of IV contrast. FINDINGS: The cerebral venous sinuses appear normal. No cerebral venous sinus thrombosis. IMPRESSION: Normal MRV. ACT 112: Negative or not required by law. The above report was generated using voice recognition software. It may contain grammatical, syntax o r spelling errors. Electronically signed by: Everett Caballero M.D. 09/04/2022 10:30 AM
[2022-09-04] MEDS: cefTRIAXone SODIUM 2,000 MG in DEXTROSE 5% 50 ML IV SCH ×2 (10:59→21:59)
[2022-09-04] MEDS: VANCOMYCIN HCL 1,000 MG in SODIUM CHLORIDE 0.9% 250 ML IV SCH ×2 (11:55→22:50)
[2022-09-04] MEDS: ACYCLOVIR SOD 800 MG in DEXTROSE 5% 250 ML IV SCH ×2 (13:44→21:23)
[2022-09-04] MEDS ORDERED: RIZATRIPTAN BENZOATE 10 MG TAB PO ONE (14:30)
--- NOTE | 2022-09-04 14:34 | Pharmacy Report ---
Pharmacy Vanc AUC Short Note - Date of Service September 04, 2022 - Assessment & Plan Assessment 72 year old M receiving vancomycin for treatment of empiric- concern for meningitis. Pertinent microbiologic data includes: N/A Day # 1 of antimicrobial therapy. Plan Vancomycin * AUC/CARO is the preferred PK/PD target for vancomycin * AUC guided dosing is effective and associated with decreased risk of nephrotoxicity compared to traditional trough targets * vancomycin 1000 mg IV every 12 hours * Trough to be ordered if continued > 48 hours Pharmacy will continue to follow and will adjust dose/frequency as necessary. Thank you.
--- NOTE | 2022-09-04 14:36 | History & Physical Bridge Note ---
Date of Service September 04, 2022 History & Physical Bridge Note I have examined the patient, reviewed the History & Physical and in the interval since the performance of the History & Physical I have noted the following changes of clinical significance: no changes noted Eval this afternoon, at bedside. Sharp/stabbing right sided headache resolving, mild tension/pressure type headache on the left. Dx migraines about 10 years ago, he typically knows/feels these coming on. Did get COVID booster last Friday, discussed prior symptoms -- did have myalgias/fevers/headache. Discussed could be from that but abx for broad coverage. No nuccal ridigity. Discussed maxalt vs ibuprofen. Given does not appear to be migraine, will try ibuprofen 600mg q6h. He states tylenol was effective yesterday but not so much today. Will ask RN to administer dose ibuprofen. MRI brain/venogram negative- relayed information to patient/. Continues on broad spectrum abx/blood cultures and tickbourne labs sent. Questions/concerns addressed at this time. Supervising Physician Co-Signing Physician Notes The patient was not seen by me. The chart was reviewed. Case discussed with KELSI Hoffman. Agree with assessment and plan
[2022-09-04] MEDS: IBUPROFEN 600 MG TAB PO PRN (15:11)
[2022-09-04] MEDS: SIMVASTATIN 20 MG TAB PO SCH (20:23)
[2022-09-04] MEDS: DOXAZosin MESYLATE 4 MG TAB PO SCH (20:23)
[2022-09-04] MEDS: PANTOprazole 40 MG TAB PO SCH (21:19)
[2022-09-05] MEDS: AMPICILLIN 2,000 MG in SODIUM CHLOR 0.9% AD-VAN 100 ML IV SCH ×6 (01:52→23:17)
[2022-09-05] MEDS: ACYCLOVIR SOD 800 MG in DEXTROSE 5% 250 ML IV SCH ×3 (05:27→21:15)
[2022-09-05] MEDS: IBUPROFEN 600 MG TAB PO PRN ×3 (07:46→23:52)
[2022-09-05 08:06] LABS: Hematocrit (blood only) 34.9 % (42.0-52.0); Hemoglobin 11.8 g/dl (14.0-18.0); Mean Corpuscular Hemoglobin 31.4 pg (25.0-34.0); Mean Corpuscular Hgb Conc 33.8 g/dL (32.0-36.0); Mean Corpuscular Volume 92.8 fL (80.0-100.0); Mean Platelet Volume 10.7 fL (9.4-12.4); Platelet Count 92 K/uL (130-400); RDW Standard Deviation 44.8 fL (36.4-46.3); Red Blood Count 3.76 M/uL (4.70-6.10); White Blood Count 4.24 K/ul (4.8-10.8)
[2022-09-05 08:26] LABS: Basophils # (auto) 0.03 K/uL (0-0.2); Basophils % (auto) 0.7 %; Eosinophils # (auto) 0.01 K/uL (0-0.50); Eosinophils % (auto) 0.2 %; Lymphocytes # (auto) 1.71 K/uL (1.2-3.4); Lymphocytes % (auto) 40.3 %; Monocytes # (auto) 0.78 K/uL (0.11-0.59); Monocytes % (auto) 18.4 %; Neutrophils # (auto) 1.71 K/uL (1.40-6.50); Neutrophils % (auto) 40.4 %; RBC Morphology Unremarkable
[2022-09-05 08:37] LABS: Albumin Level 3.3 gm/dl (3.4-5.0); BUN Creatinine Ratio 16.9 (10-20); Bilirubin,Total 0.3 mg/dl (0.2-1.0); Calcium 8.5 mg/dl (8.6-10.3); Est GFR (African American) 103.3 ml/min; Est GFR (Non-African American) 89.2 ml/min; Potassium 3.5 mmol/L (3.5-5.1)
--- NOTE | 2022-09-05 08:53 | Hospitalist Progress Note ---
Date of Service September 05, 2022 Assessment & Plan (1) Headache: Plan: 72yo male with history of well controlled asthma, GERD, HLP presenting with severe COVINGTON with photophobia and reported neck stiffness as well as fever and myalgias ongoing for the last 6-7 days. Patient is afebrile, HD stable and non- toxic in appearance. No significant nuchal rigidity appreciated on my exam. Labs as above are significant for lorenzo-cytopenia and mild elevation of LFTs. In setting of recent tick bite most strongly suspect tick-borne illness such as Anaplasmosis as cause of patient's current symptoms. Laboratory findings could be consistent with a tick-borne illness. (elevated LF Ts Anaplasmosis and Babesiosis smears are negative and DNA have been sent. Less suspicious for meningitis, however, remains on the differential. No LP performed due to low platelets of 78. Patient's recent Covid-19 booster could also be contributing to his laboratory abnormalities. MRI brain and MRV negative Added ibuprofen for headache symptoms yesterday, mild reported but did have another attack this morning Continues on empiric abx coverage for meningitis w/ Ceftriaxone 2gm IV BID, Vancomycin, Acyclovir 800mg IV q 8 hours and Ampicillin given age of 72 -Await Anaplasmosis DNA study Remains on Doxycycline BID for now Blood cultures NGTD, afebrile Repeat ESR for eval but was only 21 on admit Patient wanting to hold off on maxalt as not feeling like his prior migraines Consider consultation w/ neurology if any ongoing symptoms tomorrow vs outpatient f/u on Doxy PO empirically until PCR testing for anaplasmosis resulted. Monitor labs in AM (2) Pancytopenia: Plan: Patient with pancytopenia. Leukopenia with WBC=1.79 with decreased Neutrophils and Lymphocytes. Normochromic/normocytic anemia with Hgb=13, Hct=37.5 and thrombocytopenia with Plt=78. Possibly secondary to acute illness -tick-borne vs viral No active bleeding Patient did have bicytopenia on previous labs form 05/2021 with anemia and leukopenia. Prior values from 06/06/21 with WBC=4.77, Hgb=13.7 and Hct=42.2 and Platelets of 248. WBC improving, Hgb 11.8, plt 91 No indication for transfusion Monitor CBC on repeat (3) Asthma: Plan: Stable. Well controlled. Currently without cough, SOB or wheeze. Adequate oxygenation on room air Continue Advair BID and Albuterol PRN Zyrtec x 1 Reports seeing allergy/immunology in past and only allergy to dust mites but suspects others reports some sinus congestion but no drainage, prior tried antihistamines but were sedating agreed to dose of zrytec and will monitor response (4) Hypercholesterolemia: Plan: Chronic. Stable -Continue Simvastatin 20mg po qHS (5) GERD (gastroesophageal reflux disease): Plan: Chronic. Stable -Continue Protonix 40mg po qHS Plan continued inpatient stay on empiric abx monitor cultures check repeat ESR consider neuro consult for ongoing issues tomorrow if persists Admission and Anticipated Discharge Date Admission Date: September 04, 2022 Supervising Physician Co-Signing Physician Notes The patient was not seen by me. The chart was reviewed. Case discussed with KELSI Hoffman. Agree with assessment and plan Subjective eval this morning was doing well overnight but then again had episode of sharp stabbing pain but on his left, similar to the right sided pain he had when he came in. got dose of ibuprofen and now only with dull sensation. No meningeal signs, neck pain. No pain w/ movement/flexion of the knees. He does note some nausea when attempting to read his book today with some slightly blurring/feeling off about his vision but no spots/vision loss. Low susp for meningitis discussed. he does note some sinus congestion, willing to try a dose of zyrtec. no pain to palpation of head but he notes the day prior he had pain with just touching his right side of his head. discussed repeating ESR and monitoring cultures but if remaining negative could be viral vs reaction to his booster. He states this does not feel similar to his prior migraines. No fever/chills, chest pain, shortness of breath reported. Physical Exam Physical Exam: General: WD/WN male resting in bed, NAD HEENT: head normocephalic, atraumatic, pupils equal/reactive, EOMI no nuccal rigidity Skin: scab to L calf from tick bite w/o rash/induration Resp: CTA, no w/c/r, on room air CV: RRR, no significant m/r/g, no pitting edema GI: _BS, soft/NT MSK/Neuro: no focal deficit, no slurred speech, answering questions appropria tely Psych: AOx3, cooperative with exam Results & Data Results & Data Vital Signs (Past 12 Hours) Vital Signs Temp Pulse Resp BP Pulse Ox O2 Del Method 09/05/22 07:43 36.3 C L 61 18 121/69 97 Room Air 09/04/22 21:45 36.6 C 70 18 128/79 95 Room Air Laboratory Results 09/05/22 09/05/22 Range/Units 07:09 07:09 WBC 4.24 L (4.8-10.8) K/ul RBC 3.76 L (4.70-6.10) M/uL Hgb 11.8 L (14.0-18.0) g/dl Hct 34.9 L (42.0-52.0) % MCV 92.8 (80.0-100.0) fL MCH 31.4 (25.0-34.0) pg MCHC 33.8 (32.0-36.0) g/dL RDW Std Deviation 44.8 (36.4-46.3) fL RDW Coeff of Nilsa 13.0 (11.5-14.5) % Plt Count 92 L (130-400) K/uL MPV 10.7 (9.4-12.4) fL Immature Gran % (Auto) 0.0 % Neut % (Auto) 40.4 % Lymph % (Auto) 40.3 % [place] % (Auto) 18.4 % Eos % (Auto) 0.2 % Baso % (Auto) 0.7 % Neut # (Auto) 1.71 (1.40-6.50) K/uL Lymph # (Auto) 1.71 (1.2-3.4) K/uL [place] # (Auto) 0.78 H (0.11-0.59) K/uL Eos # (Auto) 0.01 (0-0.50) K/uL Baso # (Auto) 0.03 (0-0.2) K/uL Immature Gran # (Auto) 0.00 L (0.01-0.20) K/uL RBC Morphology Unremarkable Sodium 141 (136-145) mmol/L Potassium 3.5 D (3.5-5.1) mmol/L Chloride 110 H (98-107) mmol/L Carbon Dioxide 24 (21-32) mmol/L Anion Gap 7 (3-11) BUN 14 (6-23) mg/dl Creatinine 0.83 (0.6-1.4) mg/dl Est Cr Clr Drug Dosing 83.0 ml/min Est GFR ( Amer) 103.3 ml/min Est GFR (Non-Af Amer) 89.2 ml/min BUN/Creatinine Ratio 16.9 (10-20) Glucose 109 H (70-99(Fasting)) mg/dl Calcium 8.5 L (8.6-10.3) mg/dl Total Bilirubin 0.3 (0.2-1.0) mg/dl Direct Bilirubin 0.0 (0-0.2) mg/dl AST 123 H (13-39) U/L ALT 124 H (7-52) U/L Alkaline Phosphatase 76 (34-104) U/L Total Protein 6.0 (6.0-8.3) gm/dl Albumin 3.3 L (3.4-5.0) gm/dl PG Care Time/CCT Total # of Minutes Spent Total Time Spent with Patient: Total time spent is greater than 50% in coordination of care (as documented) at patient's floor/unit and/or counseling patient: Coding Level of Care Code 60546 SUB INP/OBS CARE 2MIN Diagnoses Headache R51.9 Headache chronicity pattern: acute headache Headache type: unspecified Intractability: not intractable Pancytopenia D61.818 Asthma J45.909 Asthma persistence: persistent Asthma severity: severe Hypercholesterolemia E78.00 GERD (gastroesophageal reflux disease) K21.9 (1) Headache Headache chronicity pattern: acute headache Headache type: unspecified Intractability: not intractable Qualified Code(s): R51.9 - Headache, unspecified (3) Asthma Asthma persistence: persistent Asthma severity: severe
[2022-09-05] MEDS: DOXYCYCLINE HYCLATE 100 MG CAP PO SCH ×2 (09:02→20:26)
[2022-09-05] MEDS: FAMOTIDINE 20 MG TAB PO SCH (09:02)
[2022-09-05] MEDS: FLUTICASONE/VILANTEROL 200/25MCG 14 PUFFS/INHALER INH SCH (09:02)
[2022-09-05] MEDS: cefTRIAXone SODIUM 2,000 MG in DEXTROSE 5% 50 ML IV SCH ×2 (09:39→22:25)
[2022-09-05] MEDS: VANCOMYCIN HCL 1,000 MG in SODIUM CHLORIDE 0.9% 250 ML IV SCH ×2 (10:27→23:53)
[2022-09-05] MEDS ORDERED: CETIRIZINE HCL 10 MG TABLET PO ONE (11:17)
[2022-09-05] MEDS: DOXAZosin MESYLATE 4 MG TAB PO SCH (20:25)
[2022-09-05] MEDS: PANTOprazole 40 MG TAB PO SCH (20:26)
[2022-09-05] MEDS: SIMVASTATIN 20 MG TAB PO SCH (20:26)
[2022-09-06] MEDS ORDERED: MoRPHine SULFATE 2 MG/ML CARP IV ONE (00:38)
[2022-09-06] MEDS ORDERED: LIDOCAINE 5% 1 PATCH TD SCH (00:40)
[2022-09-06] MEDS: ACYCLOVIR SOD 800 MG in DEXTROSE 5% 250 ML IV SCH ×2 (05:16→13:45)
[2022-09-06] MEDS: IBUPROFEN 600 MG TAB PO PRN (06:37)
[2022-09-06 07:36] LABS: Hematocrit (blood only) 35.1 % (42.0-52.0); Hemoglobin 11.9 g/dl (14.0-18.0); Mean Corpuscular Hgb Conc 33.9 g/dL (32.0-36.0); Mean Corpuscular Volume 91.4 fL (80.0-100.0); Mean Platelet Volume 10.3 fL (9.4-12.4); Platelet Count 112 K/uL (130-400); RDW Coefficient of Variation 13.2 % (11.5-14.5); RDW Standard Deviation 44.4 fL (36.4-46.3); Red Blood Count 3.84 M/uL (4.70-6.10); White Blood Count 4.16 K/ul (4.8-10.8)
[2022-09-06 07:57] LABS: Albumin Level 3.5 gm/dl (3.4-5.0); BUN Creatinine Ratio 17.1 (10-20); Bilirubin Direct 0.1 mg/dl (0-0.2); Bilirubin,Total 0.3 mg/dl (0.2-1.0); Calcium 8.7 mg/dl (8.6-10.3); Creatinine Clr Calc Pharmacy 90.6 ml/min; Est GFR (African American) 107.1 ml/min; Est GFR (Non-African American) 92.4 ml/min; Potassium 3.8 mmol/L (3.5-5.1); Total Protein 6.2 gm/dl (6.0-8.3)
[2022-09-06 08:00] LABS: ALC (manual) 2.16 K/uL (1.2-3.4); ANC (manual) 1.62 K/uL (1.4-6.5); Basophils # (manual) 0.04 K/uL (0-0.2); Basophils % (manual) 1 %; Lymphocytes # (manual) 1.33 K/uL (1.2-3.4); Lymphocytes % (manual) 32 %; Monocytes # (manual) 0.37 K/uL (0.11-0.59); Monocytes % (manual) 9 %; Neutrophils # (manual) 1.62 K/uL (1.40-6.50); Neutrophils % (manual) 39 %; RBC Morphology Unremarkable; Reactive Lymphocytes # (manual) 0.83 K/uL; Reactive Lymphocytes % (manual) 20 %
--- NOTE | 2022-09-06 08:48 | Hospitalist Progress Note ---
Date of Service September 06, 2022 Assessment & Plan (1) Headache: Plan: 72yo male with history of well controlled asthma, GERD, HLP presenting with severe COVINGTON with photophobia and reported neck stiffness as well as fever and myalgias ongoing for the last 6-7 days. Patient is afebrile, HD stable and non- toxic in appearance. No significant nuchal rigidity appreciated on my exam. Labs as above are significant for lorenzo-cytopenia and mild elevation of LFTs. In setting of recent tick bite most strongly suspect tick-borne illness such as Anaplasmosis as cause of patient's current symptoms. Laboratory findings could be consistent with a tick-borne illness. (elevated LF Ts Anaplasmosis and Babesiosis smears are negative and DNA have been sent. Less suspicious for meningitis, however, remains on the differential. No LP performed due to low platelets of 78. Patient's recent Covid-19 booster could also be contributing to his laboratory abnormalities. MRI brain and MRV negative Added ibuprofen for headache symptoms yesterday, mild reported but did have another attack this morning Continues on empiric abx coverage for meningitis w/ Ceftriaxone 2gm IV BID, Vancomycin, Acyclovir 800mg IV q 8 hours and Ampicillin given age of 72 -Await Anaplasmosis DNA study Remains on Doxycycline BID for now Blood cultures NGTD, afebrile Repeat ESR for eval but was only 21 on admit Patient wanting to hold off on maxalt as not feeling like his prior migraines Consider consultation w/ neurology if any ongoing symptoms tomorrow vs outpatient f/u on Doxy PO empirically until PCR testing for anaplasmosis resulted. Monitor labs in AM (2) Pancytopenia: Plan: Patient with pancytopenia. Leukopenia with WBC=1.79 with decreased Neutrophils and Lymphocytes. Normochromic/normocytic anemia with Hgb=13, Hct=37.5 and thrombocytopenia with Plt=78. Possibly secondary to acute illness -tick-borne vs viral No active bleeding Patient did have bicytopenia on previous labs form 05/2021 with anemia and leukopenia. Prior values from 06/06/21 with WBC=4.77, Hgb=13.7 and Hct=42.2 and Platelets of 248. WBC improving, Hgb 11.8, plt 91 No indication for transfusion Monitor CBC on repeat (3) Asthma: Plan: Stable. Well controlled. Currently without cough, SOB or wheeze. Adequate oxygenation on room air Continue Advair BID and Albuterol PRN Zyrtec x 1 Reports seeing allergy/immunology in past and only allergy to dust mites but suspects others reports some sinus congestion but no drainage, prior tried antihistamines but were sedating agreed to dose of zrytec and will monitor response (4) Hypercholesterolemia: Plan: Chronic. Stable -Continue Simvastatin 20mg po qHS (5) GERD (gastroesophageal reflux disease): Plan: Chronic. Stable -Continue Protonix 40mg po qHS Plan continued inpatient stay on empiric abx monitor cultures check repeat ESR consider neuro consult for ongoing issues tomorrow if persists Admission and Anticipated Discharge Date Admission Date: September 04, 2022 Results & Data Results & Data Vital Signs (Past 12 Hours) Vital Signs Temp Pulse Resp BP Pulse Ox O2 Del Method 09/06/22 07:09 36.6 C 60 14 123/73 95 Room Air 09/05/22 21:34 36.6 C 55 L 16 128/79 94 Room Air Laboratory Results 09/06/22 09/06/22 09/06/22 Range/Units 06:38 06:38 06:38 WBC 4.16 L (4.8-10.8) K/ul RBC 3.84 L (4.70-6.10) M/uL Hgb 11.9 L (14.0-18.0) g/dl Hct 35.1 L (42.0-52.0) % MCV 91.4 (80.0-100.0) fL MCH 31.0 (25.0-34.0) pg MCHC 33.9 (32.0-36.0) g/dL RDW Std Deviation 44.4 (36.4-46.3) fL RDW Coeff of Nilsa 13.2 (11.5-14.5) % Plt Count 112 L (130-400) K/uL MPV 10.3 (9.4-12.4) fL Neutrophils % (Manual) 39 % Lymphocytes % (Manual) 32 % Reactive Lymphs % (Man) 20 % Monocytes % (Manual) 9 % Basophils % (Manual) 1 % Neutrophils # (Manual) 1.62 (1.40-6.50) K/uL Total Absolute Neuts 1.62 (1.4-6.5) K/uL Lymphocytes # (Manual) 1.33 (1.2-3.4) K/uL Reactive Lymphs # 0.83 K/uL Total Abs Lymphocytes 2.16 (1.2-3.4) K/uL Monocytes # (Manual) 0.37 (0.11-0.59) K/uL Basophils # (Manual) 0.04 (0-0.2) K/uL RBC Morphology Unremarkable ESR (0-20) mm/hr Sodium 139 (136-145) mmol/L Potassium 3.8 (3.5-5.1) mmol/L Chloride 107 (98-107) mmol/L Carbon Dioxide 26 (21-32) mmol/L Anion Gap 6 (3-11) BUN 13 (6-23) mg/dl Creatinine 0.76 (0.6-1.4) mg/dl Est Cr Clr Drug Dosing 90.6 ml/min Est GFR ( Amer) 107.1 ml/min Est GFR (Non-Af Amer) 92.4 ml/min BUN/Creatinine Ratio 17.1 (10-20) Glucose 113 H (70-99(Fasting)) mg/dl Calcium 8.7 (8.6-10.3) mg/dl Total Bilirubin 0.3 (0.2-1.0) mg/dl Direct Bilirubin 0.1 (0-0.2) mg/dl AST 332 H (13-39) U/L ALT 347 H (7-52) U/L Alkaline Phosphatase 77 (34-104) U/L Total Protein 6.2 (6.0-8.3) gm/dl Albumin 3.5 (3.4-5.0) gm/dl Hepatitis A IgM Ab Pending Hep Bs Antigen Pending Hep Bs Ag Confirmation Pending Hep B Core IgM Ab Pending Hepatitis C Ab (EIA) Pending Hep C Ab Signal/Cutoff Pending 09/05/22 Range/Units 07:09 WBC (4.8-10.8) K/ul RBC (4.70-6.10) M/uL Hgb (14.0-18.0) g/dl Hct (42.0-52.0) % MCV (80.0-100.0) fL MCH (25.0-34.0) pg MCHC (32.0-36.0) g/dL RDW Std Deviation (36.4-46.3) fL RDW Coeff of Nilsa (11.5-14.5) % Plt Count (130-400) K/uL MPV (9.4-12.4) fL Neutrophils % (Manual) % Lymphocytes % (Manual) % Reactive Lymphs % (Man) % Monocytes % (Manual) % Basophils % (Manual) % Neutrophils # (Manual) (1.40-6.50) K/uL Total Absolute Neuts (1.4-6.5) K/uL Lymphocytes # (Manual) (1.2-3.4) K/uL Reactive Lymphs # K/uL Total Abs Lymphocytes (1.2-3.4) K/uL Monocytes # (Manual) (0.11-0.59) K/uL Basophils # (Manual) (0-0.2) K/uL RBC Morphology ESR 11 (0-20) mm/hr Sodium (136-145) mmol/L Potassium (3.5-5.1) mmol/L Chloride (98-107) mmol/L Carbon Dioxide (21-32) mmol/L Anion Gap (3-11) BUN (6-23) mg/dl Creatinine (0.6-1.4) mg/dl Est Cr Clr Drug Dosing ml/min Est GFR ( Amer) ml/min Est GFR (Non-Af Amer) ml/min BUN/Creatinine Ratio (10-20) Glucose (70-99(Fasting)) mg/dl Calcium (8.6-10.3) mg/dl Total Bilirubin (0.2-1.0) mg/dl Direct Bilirubin (0-0.2) mg/dl AST (13-39) U/L ALT (7-52) U/L Alkaline Phosphatase (34-104) U/L Total Protein (6.0-8.3) gm/dl Albumin (3.4-5.0) gm/dl Hepatitis A IgM Ab Hep Bs Antigen Hep Bs Ag Confirmation Hep B Core IgM Ab Hepatitis C Ab (EIA) Hep C Ab Signal/Cutoff PG Care Time/CCT Total # of Minutes Spent Total Time Spent with Patient: Total time spent is greater than 50% in coordination of care (as documented) at patient's floor/unit and/or counseling patient: Coding Diagnoses Headache R51.9 Headache chronicity pattern: acute headache Headache type: unspecified Intractability: not intractable Pancytopenia D61.818 Asthma J45.909 Asthma severity: severe Asthma persistence: persistent Hypercholesterolemia E78.00 GERD (gastroesophageal reflux disease) K21.9 (1) Headache Headache chronicity pattern: acute headache Headache type: unspecified Intractability: not intractable Qualified Code(s): R51.9 - Headache, unspecified (3) Asthma Asthma severity: severe Asthma persistence: persistent
[2022-09-06] MEDS: FLUTICASONE/VILANTEROL 200/25MCG 14 PUFFS/INHALER INH SCH (08:52)
[2022-09-06] MEDS: FAMOTIDINE 20 MG TAB PO SCH (08:53)
[2022-09-06] MEDS: DOXYCYCLINE HYCLATE 100 MG CAP PO SCH (08:53)
[2022-09-06] MEDS ORDERED: CYCLOBENZAPRINE HCL 5 MG TAB PO STA (10:05)
[2022-09-06] MEDS: AMPICILLIN 2,000 MG in SODIUM CHLOR 0.9% AD-VAN 100 ML IV SCH ×3 (10:49→10:51)
[2022-09-06] MEDS ORDERED: AMPICILLIN 2,000 MG in SODIUM CHLOR 0.9% AD-VAN 100 ML IV SCH (11:00)
[2022-09-06] MEDS: cefTRIAXone SODIUM 2,000 MG in DEXTROSE 5% 50 ML IV SCH (11:11)
[2022-09-06] MEDS: VANCOMYCIN HCL 1,000 MG in SODIUM CHLORIDE 0.9% 250 ML IV SCH (11:52)
--- NOTE | 2022-09-06 11:54 | Ultrasound Report ---
US liver CLINICAL HISTORY: elevated LFTs COMPARISON STUDY: Right upper quadrant ultrasound April 25, 2007. FINDINGS: No hepatic lesions are identified. The common bile duct is mildly dilated, measuring 8 mm, status post cholecystectomy. No common bile duct calculi are identified by sonography. A trace right pleural effusion is incidentally noted. Pancreas is partially obscured. There is no right hydronephro sis. IMPRESSION: 1. Mild dilatation of the common bile duct. This is likely related to cholecystectomy however could b e correlated with obstructive liver function tests. 2. Partially obscured pancreas. 3. Trace right pleural effusion. ACT 112: Negative or not required by law. Electronically signed by: Trent Guillen M.D. 09/06/2022 11:53 AM
--- NOTE | 2022-09-06 14:12 | Discharge Summary ---
Date of Service September 06, 2022 Admission HPI Per Admitting Provider Raymundo Bullock is a pleasant 72yo male with history of well controlled asthma, BPH, GERD and HLP presenting with severe COVINGTON with neck stiffness, photophobia, myalgias. Patient developed URI symptoms last week with neck stiffness on 08/29/22. The symptoms persisted over the next several days. On 08/31/22 he felt more fatigued with body aches and fever. Fever persisted through 09/01 with Tmax of 102.5. He was seen by his PCP on 09/02 and was given a prescription for Cefuroxime which he has been taking without difficulty. Patient's symptoms worsened today which prompted him to come to the ER. He has been taking Ibuprofen for management of his headache with minimal improvement. Patient's headache is severe, stabbing pain at the top of his head and slightly more left sided. Patient also endorses some mild photophobia and nausea. He has a history of migraine but has not had a migraine recently. He reports that his current COVINGTON does not feel anything like his prior migraine. Additionally- patient did have a tick bite approximately 10 days ago. The tick bit him on his left calf. He thinks it was attached only a few hours as it was not engorged. He removed it without difficulty. No rash noted. Patient also recently had his Covid-19 bivalent booster. He had mild symptoms with his previous boosters but nothing severe as this. In the ER he is afebrile, HD stable. ER Course: Ceftriaxone 2gm Dexamethasone 10mg IV NSS x 1L Tylenol 1gm Reglan 10mg IV Vancomycin 1500mg Admission Exam Per Admitting Provider General: patient resting comfortably, NAD, non-toxic in appearance, AA&O x 4 Skin: warm, dry, intact, no rashes or lesions. Small scab located on left calf from tick bite - no rash or induration HEENT: NC/AT, PERRL with mild photophobia, EOMI, anicteric sclera, conjunctiva without injection, external ear normal to inspection and nontender, nares patent, moist mucus membranes, dentition intact, no oropharyngeal lesions, neck supple, trachea midline, no LAD, no thyromegaly, no JVD Heart: +S1/S2, regular, no m/r/g Lungs: equal air entry bilaterally, no rales/rhonchi/wheezes Abd: +BS, soft, NT/ND, no masses/organomegaly/ascites Ext: warm, 2+ pulses in UE/LE bilaterally, no clubbing/cyanosis or edema Neuro: nonfocal, patient AA&O x 4, speech intact, no facial droop, moving all extremities on command with equal strength 5/5, negative Kernig's sign and negative Brudzinski's sign Principal Diagnosis Headache Discharge Exam General: WD/WN male sitting up in chair, at bedside, NAD HEENT: head normocephalic, atraumatic, pupils equal/reactive, EOMI, paraspinal muslce tightness, no meningeal signs or nuccal rigidity Skin: scab to L calf from tick bite w/o rash/induration Resp: CTA, no w/c/r, on room air CV: RRR, no significant m/r/g, no pitting edema GI:+_BS, soft/NT MSK/Neuro: no focal deficit, no slurred speech, answering questions appropriately Psych: AOx3, cooperative with exam Discharge Data Allergies Allergy/AdvReac Type Severity Reaction Status Date / Time Sulfa (Sulfonamide Allergy Mild Rash Verified 09/02/22 16:37 Antibiotics) Consultations 09/03/22 23:30 ED Decision to Admit Stat 09/06/22 08:40 Consult Neurology Routine Ordered Studies Head CT 09/03/22 22:06 Exam(s): CT HEAD Without Contrast EXAM: CT Head Without Intravenous Contrast CLINICAL HISTORY: Reason for exam: [place]/fever. TECHNIQUE: Axial computed tomography images of the head/brain without intravenous contrast. Automated exposure control was utilized for the study. A dose lowering technique was utilized adhering to the principles of ALARA. COMPARISON: No relevant prior studies available. FINDINGS: Brain: No hemorrhage, extra-axial fluid collection, mass effect, or edema. Ventricles: Unremarkable. Bones/joints: Unremarkable. No fracture. Soft tissues: Unremarkable. Sinuses: Mild scattered paranasal sinus mucosal thickening. No sinusitis. Mastoid air cells: Unremarkable as visualized. IMPRESSION: 1. No acute intracranial abnormality. Electronically signed by: Orlin Noriega MD 09/03/22 23:05 PM Chest X-Ray 09/03/22 22:07 SINGLE VIEW CHEST CLINICAL HISTORY: Sepsis. FINDINGS: An AP, portable, upright chest radiograph is compared to study dated 03/24/2019. The heart is enlarged noting atherosclerotic calcification of the thoracic aorta. The pulmonary vasculature is noncongested. There are scattered calcified granulomas. Mild atelectasis is seen at the lung bases. The lungs and pleural spaces are otherwise clear. No pneumothorax is seen. The skeletal structures are osteopenic. Bony thorax is grossly intact. IMPRESSION: Cardiac enlargement with no active disease in the chest. ACT 112: Negative or not required by law. Electronically signed by: Alexei Marvin M.D. 09/03/2022 10:48 PM Brain MRI 09/04/22 01:28 MRI OF THE BRAIN COMBO CLINICAL HISTORY: Headache. Neck stiffness. COMPARISON STUDY: CT of the brain dated 09/03/2022. TECHNIQUE: MRI of the brain was performed utilizing various T1 and T2-weighted sequences in the axial, sagittal, and coronal planes. Contrast-enhanced sequenc es were acquired following the administration of 8 cc of Gadavist. FINDINGS: Brain parenchyma: There is age-related involutional change noting minimal microangiopathic disease. There is no hemorrhage or mass effect. There is no restricted diffusion to suggest acute ischemia. No enhancing mass lesion is identified on the postcontrast images. Liu-white matter differentiation is preserved. No extra-axial fluid collection is seen. The cerebellar tonsils are normal in configuration. There is no leptomeningeal or pachymeningeal enhancement. Ventricles, sulci, and cisterns: Prominent secondary to involutional change. Pituitary and sella: Unremarkable. Intracranial vasculature: Normal flow voids are maintained at the skull base. Orbits: The bony orbits are grossly intact. Orbital contents are normal in appearance. Sinuses and mastoids: Retention cyst in the maxillary antra measuring up to 11 mm. Eieq-ny-lkgriehi mucosal thickening is noted within the ethmoid sinuses and the right frontal sinus. The mastoid air cells are clear. Calvarium: Unremarkable. Cervical cord: Partially visualized cervical spinal cord is normal in morphology and signal intensity. IMPRESSION: No acute intracranial abnormality. ACT 112: Negative or not required by law. Electronically signed by: Alexei Marvin M.D. 09/04/2022 10:18 AM Head/Brain Mag Res Venography 09/04/22 01:28 MR venography head wo con HISTORY: 72 years-old Male severe COVINGTON acute severe headache COMPARISON: Brain MRI of same day, head CT 09/03/2022 TECHNIQUE: MRV was obtained without the use of IV contrast. FINDINGS: The cerebral venous sinuses appear normal. No cerebral venous sinus thrombosis. IMPRESSION: Normal MRV. ACT 112: Negative or not required by law. The above report was generated using voice recognition software. It may contain grammatical, syntax or spelling errors. Electronically signed by: Everett Caballero M.D. 09/04/2022 10:30 AM Liver Ultrasound 09/06/22 08:44 US liver CLINICAL HISTORY: elevated LFTs COMPARISON STUDY: Right upper quadrant ultrasound April 25, 2007. FINDINGS: No hepatic lesions are identified. The common bile duct is mildly dilated, measuring 8 mm, status post cholecystectomy. No common bile duct calculi are identified by sonography. A trace right pleural effusion is incid entally noted. Pancreas is partially obscured. There is no right hydronephrosis. IMPRESSION: 1. Mild dilatation of the common bile duct. This is likely related to cholecystectomy however could be correlated with obstructive liver function tests. 2. Partially obscured pancreas. 3. Trace right pleural effusion. ACT 112: Negative or not required by law. Electronically signed by: Trent Guillen M.D. 09/06/2022 11:53 AM Hospital Course (1) Headache: 72yo male with history of well controlled asthma, GERD, HLP presenting with severe COVINGTON with photophobia and reported neck stiffness as well as fever and myalgias ongoing for the last 6-7 days. Patient is afebrile, HD stable and non- toxic in appearance. No significant nuchal rigidity appreciated on my exam. Labs significant for lorenzo-cytopenia and mild elevation of LFTs. In setting of recent tick bite most strongly suspect tick-borne illness such as Anaplasmosis as cause of patient's current symptoms. Laboratory findings could be consistent with a tick-borne illness. (elevated LFTs) However, did report similar myalgias/headache after prior BOOSTER, could have contributed as he reported developing fevers at home on the weekend after getting last week. COVID testing negative Anaplasmosis and Babesiosis smears are negative and DNA have been sent. Less suspicious for meningitis, however, remains on the differential. No LP performed due to low platelets of 78. Patient's recent Covid-19 booster could also be contributing to his laboratory abnormalities. MRI brain and MRV negative Added ibuprofen for headache symptoms yesterday, mild reported but did have another attack AM 09/05 Continued on empiric abx coverage for meningitis w/ Ceftriaxone 2gm IV BID, Vancomycin, Acyclovir 800mg IV q 8 hours and Ampicillin given age of 72 Anaplasmosis DNA study pending and was on Doxy BID as well -- discussion to NOT continue doxy at discharge Blood cultures remained NGTD Repeat ESR wnl Neurology consulted --> discussed w/ Dr Tomas, no encephalitis, felt stable for dc and recs for zanalfex 4mg HS and gabapentin 300mg BID at discharge. Rx sent. Stable on exam Outpt f/u neurology (2) Pancytopenia: Patient with pancytopenia. Leukopenia with WBC=1.79 with decreased Neutrophils and Lymphocytes. Normochromic/normocytic anemia with Hgb=13, Hct=37.5 and thrombocytopenia with Plt=78. Possibly secondary to acute illness -tick-borne vs viral vs reaction to recent booster? Patient did have bicytopenia on previous labs form 05/2021 with anemia and leukopenia. Prior values from 06/06/21 with WBC=4.77, Hgb=13.7 and Hct=42.2 and Platelets of 248. WBC improving, Hgb 11.9, plt 112 Stable for d/c, no bleeding F/u PCP, consider heme/onc if continued issues on repeat, but again did have lows in 2021 as well (3) Asthma: Stable. Well controlled. Currently without cough, SOB or wheeze. Adequate o xygenation on room air Continue Advair BID and Albuterol PRN Zyrtec x 1 for allergic symptoms , improved Reports seeing allergy/immunology in past and only allergy to dust mites but suspects others -- can f/u outpt (4) Hypercholesterolemia: Chronic. Stable Continue Simvastatin 20mg po qHS (5) GERD (gastroesophageal reflux disease): Chronic. Stable Continue Protonix 40mg po qHS (6) Elevated LFTs: on repeat labs, RUQ w/ CBD dilation but NO abdominal pain on exam Hep panel pending at dc but given no pain, suspect from antibiotics used while inpatient discussed w/ patient if any abdominal pain would need f/u labs/exam to ensure no issues Plan blood cultures remained NGTD seen by Neurology and stable for d/c discharged home w/ zanalfex and gabapentin Total Time Total Time Spent Total Time Spent (In Minutes): 40 Discharge Plan Discharge Items Patient Disposition: Home - Self-Care Reason For Visit: HEADACHE, BODY ACHES, FEVER Discharge Diagnosis: Headache Condition on Discharge: Fair Activity: Resume your previous activity Non-emergency contact: Primary Care Provider Call non-emergency contact if: you have any medication questions, your symptoms worsen and you have a fever Follow-up/Referrals: Ross Del Castillo MD [Primary Care Provider] - 09/10/22 9:30 am Nicho Tomas DO [Physician] - Diet: Heart Healthy Addtl Attending Provider Instructions: You have been hospitalized with a fever and headache. Labs do not support meningitis and you did not have any signs on exam that would suggest this. We treated you empirically with broad spectrum antibiotics and blood cultures have remained negative. MRI imaging of the brain was done and reviewed by Neurology as well, no evidence for abnormality/stroke. Lyme testing was negative and decision not to continue doxycycline at discharge. Neurology recommending Zanaflex 4mg at night for muscle spasm type pain and gabapentin 300mg twice daily as well. Your liver enzymes were elevated and ultrasound was done which showed some dilation of common bile duct, likely from prior gall bladder removal. Given no pain on exam, felt not an issue and likely elevated form antibiotics used during admission. Monitor for any right upper quadrant pain and call PCP if this occurs or go to the ER. You can continue ibuprofen as using for headache pain, but would avoid tylenol for the next 1-2 days given elevated liver enzymes. If you have any worsening headache, fevers, or any symptoms concerning for you, please return to the emergency department. You should follow up with primary care in the next week to monitor your progress. It has been a pleasure being a part of the medical team providing for you while you have been in the hospital. Take care! Pending Studies at Discharge: Yes Studies:: hepatitis panel blood cultures -- no growth to date anaplasmosis DNA pending Stand-Alone Forms: My Lettuce, Smoking Cessation Medications and DC Order Prescriptions: New tizanidine [Zanaflex] 4 mg capsule 4 mg PO HS Qty: 30 0RF gabapentin 300 mg capsule 300 mg PO BID Qty: 60 0RF Continued simvastatin [Zocor] 20 mg tablet 20 mg PO HS Qty: 90 3RF albuterol sulfate [Proventil HFA] 90 mcg/actuation HFA aerosol inhaler 2 puffs INH Q6H PRN (Reason: SHORT OF BREATH) Patient Comments: several days ago multivitamin tablet 1 tab PO DAILY pantoprazole [Protonix] 40 mg tablet,delayed release (DR/EC) 40 mg PO HS doxazosin [Cardura] 4 mg tablet 4 mg PO HS Qty: 90 3RF famotidine 20 mg tablet 20 mg PO DAILY fluticasone propion-salmeterol [Advair Diskus] 250-50 mcg/dose blister with device 1 inh inhalation BID Qty: 60 11RF rizatriptan [Maxalt] 10 mg Tablet 10 mg PO UD PRN (Reason: Migraine Headache) Discontinued cefuroxime axetil 500 mg tablet 500 mg PO BID Qty: 30 1RF Discharge Orders: Discharge Order (Routine); Ordered 09/06/22 Ordered By: Rebeka Castro Admission Data Admit Date/Time: 09/04/22 00:03 Attending Provider: Alessio Wiggins Admit Provider: Janice Garcia Primary Care Provider: Ross Del Castillo Other Providers: Janice Garcia ; Nicho Tomas Other Interventions: Discharge Summary Assessment (RN) Last Done: 09/06/22 14:43 Supervising Physician Co-Signing Physician Notes The patient was seen by me. The chart was reviewed. Case discussed with KELSI Hoffman. Agree with assessment and plan. He will be discharged home today, September 06 Coding Level of Care Code 12097 INP/OBS DISCH >30 MIN Diagnoses Headache R51.9 Headache chronicity pattern: acute headache Headache type: unspecified Intractability: not intractable Pancytopenia D61.818 Asthma J45.909 Asthma persistence: persistent Asthma severity: severe Hypercholesterolemia E78.00 GERD (gastroesophageal reflux disease) K21.9 Elevated LFTs R79.89
--- NOTE | 2022-09-06 17:33 | Neurology Consultation ---
Date of Consultation September 06, 2022 Assessment & Plan (1) Primary stabbing headache: Plan A 72 year old male with history of migraine headache admitted with increased headache with change in characteristics. 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 Trigger includes possible tic born illness Vs covid booster. MRI and MRV reassuring. No focal neuro deficits. PAtient does not appear encephalopathic. Recommend staring Gabapentin 300 mg BID and zanaflex 4 mg nightly for headache management. If headaches remit he can wean off or stop these medicaitons. Ok to discharge from Neuro standpoint. History of Present Illness Reason for Consultation: Headaches Attending Physician: Alessio Wiggins MD History of Present Illness A 72 year old male with history of migriane headaches admitted for worsening or increased frequency of headaches. he reports getting COVID booster last week as well as had a tic bite. Denies rash. He noted a low grade fever and malaise earlier in the week. He also developed intermittent frequent headaches that are in different location including both sides of his head. Can be severe and happening a few times per day. These are different then his previous headaches. He does have photophobia. Denies nausea. He was started on Abx for possible tic born illness. He also underwent MRI and MRV imaging. Allergies Allergy/AdvReac Type Severity Reaction Status Date / Time Sulfa (Sulfonamide Allergy Mild Rash Verified 09/02/22 16:37 Antibiotics) Home Medications Medication Instructions Recorded Confirmed Type albuterol sulfate 90 mcg/actuation 2 puffs inhalation Q6H PRN SHORT 03/12/19 09/03/22 History aerosol inhaler (Proventil HFA) OF BREATH multivitamin 1 tab PO DAILY 03/12/19 09/03/22 History pantoprazole 40 mg tablet,delayed 40 mg PO HS 03/12/19 09/03/22 History release (Protonix) rizatriptan 10 mg tablet (Maxalt) 10 mg PO UD PRN Migraine Headache 03/23/19 09/03/22 History simvastatin 20 mg tablet (Zocor) 20 mg PO HS #90 tabs 02/26/22 09/03/22 Rx famotidine 20 mg tablet 20 mg PO DAILY 04/23/22 09/03/22 History fluticasone 250 mcg-salmeterol 50 1 inh inhalation BID #60 ea 05/01/22 09/03/22 Rx mcg/dose blistr powdr for inhalation (Advair Diskus) doxazosin 4 mg tablet (Cardura) 4 mg PO HS #90 tabs 07/11/22 09/03/22 Rx gabapentin 300 mg capsule 300 mg PO BID #60 caps 09/06/22 Rx tizanidine 4 mg capsule (Zanaflex) 4 mg PO HS #30 caps 09/06/22 Rx Patient History Medical History Asthma stable BPH (benign prostatic hyperplasia) Bulging disc lumbar region Elevated PSA Encounter for pre-operative examination GERD (gastroesophageal reflux disease) controlled Migraine Surgical History H/O colonoscopy 2004 with bowel perf per pt H/O inguinal hernia repair RIGHT X3 History of colon surgery S/P PERFORATION DURING COLONOSCOPY History of colonoscopy History of endoscopic sinus surgery History of esophagogastroduodenoscopy (EGD) History of hernia surgery Femoral 2007 Hx of cholecystectomy Hx of hand surgery LEFT Hx of inguinal hernia surgery (03/31/19) Open Left Inguinal Hernia Repair with mesh Dr. Peace 03/31/19 [place] teeth removed Family History Father Prostate cancer Heart disease Lung cancer Grandfather No problems noted. 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 No distres. Appears comfortable. Speech is clear. Eyes midline. Face symmetric. No skin rash. Mild restriction w neck flexion. Zhang Negative. No dysmetria. Sensation intact. Pupils reactive. Results & Data Vital Signs (Past 12 Hours) Vital Signs Temp Pulse Resp BP Pulse Ox O2 Del Method 09/06/22 14:56 36.4 C L 57 L 18 121/74 96 Room Air 09/06/22 07:09 36.6 C 60 14 123/73 95 Room Air
[2022-09-07 09:08] LABS: HBSAG NON-REACTIVE (NON-REACTIVE); Hepatitis A Antibody IgM NON-REACTIVE (NON-REACTIVE); Hepatitis B Core Antibody IgM NON-REACTIVE (NON-REACTIVE)
[2022-09-07 17:18] LABS: Babesia microti DNA Not Detected (Not Detected)
--- NOTE | 2022-09-09 13:39 | Coding Query ---
CODING QUERY To promote full compliance with coding requirements relating to patient care, provider participation is requested in all cases of building maintenance repairer uncertainty. Please assist us with the question(s) below: Coding Question(s): Pt admitted with severe headache,neck stiffness and myalgias. History of Tick bite 10 days [employer]. Anaplasmosis & Babesiosis smears negative. Please review the Serology / Anaplasmosis DNA result and provide a diagnosis if applicable. Thanks for your help! Darius Acuna [facility] Physician's Response(s): Principal Diagnosis: "that condition established after study, to be chiefly responsible for occasioning the admission of the patient to the hospital for care." Co-Existing Principal Diagnosis: "when two or more diagnoses equally meet the criteria for principal diagnosis as determined by the circumstances of admission, diagnostic work up, and/or therapy provided, and the Alphabetic Index, Tabular List, or another coding guideline does not provide sequencing direction, any one of the diagnoses may be sequenced first." "When the physician has documented what appears to be a current diagnosis in the body of the record, but has not included the diagnosis in the final diagnostic statement, the physician should be asked whether the diagnosis should be added." (Source Coding [facility] 2 QTR90. p3-4) [place]
--- NOTE | 2022-09-27 05:44 | Coding Query ---
CODING QUERY To promote full compliance with coding requirements relating to patient care, provider participation is requested in all cases of video production intern uncertainty. Please assist us with the question(s) below: Coding Question(s): Pt admitted with headache, history of stiff neck, fatique and fevers. Meningitis ruled out. * Anaplasmosis DNA serology resulted Positive after admission. Please document, if known or suspected, the etiology of the headache. Thanks for your help. Darius Acuna, [facility] . Physician's Response(s): Etiology of the headache is most likely from anaplasmosis Principal Diagnosis: "that condition established after study, to be chiefly responsible for occasioning the admission of the patient to the hospital for care." Co-Existing Principal Diagnosis: "when two or more diagnoses equally meet the criteria for principal diagnosis as determined by the circumstances of admission, diagnostic work up, and/or therapy provided, and the Alphabetic Index, Tabular List, or another coding guideline does not provide sequencing direction, any one of the diagnoses may be sequenced first." "When the physician has documented what appears to be a current diagnosis in the body of the record, but has not included the diagnosis in the final diagnostic statement, the physician should be asked whether the diagnosis should be added." (Source Coding Clinic 2 QTR90. p3-4) [place]
== END 2022-09-06 15:52 | disposition home or self-care (01) | DRG 868 ==
LOC: ED 21:40 → 3N 09-04 00:03 → SUATTDRO 09-04 00:03 → 3N 09-04 01:19